=== PATIENT | female | born 1960 | race Caucasian/White ===

== ENCOUNTER 2018-12-24 07:59 | Outpatient (CLI) | payer MEDICARE ==
--- NOTE | 2018-12-24 14:17 | NM ---
RADIONUCLIDE GASTRIC EMPTYING SCAN: Date: 12/24/18 HISTORY: Nausea. Patient had colon removed in 1999 due to polyps. Polyps are now seen in the stomach. Concern for gastroparesis. TECHNIQUE: A gastric emptying scan was performed using 2.1 mCi technetium-99m sulfur colloid orally in scrambled eggs. FINDINGS/IMPRESSION: There is 36% emptying of the ingested gastric contents at 1 hour, 87% emptying at 2 hours, 88% emptyi ng at 3 hours, and 90% emptying at 4 hours. The calculated gastric emptying halftime measures 81 minutes. POS: FREDO
== END 2018-12-24 08:00 | disposition home or self-care (01) ==
LOC: NM 07:59
PROVIDERS: ATTEND Internal Medicine
DX: R11.2 Nausea with vomiting, unspecified (principal)
CPT/HCPCS: 78264; A9541

== ENCOUNTER 2019-04-16 13:44 | Inpatient (IN) | payer MEDICARE ==
[~2019-04-16 13:44] MED LIST: Heparin 1,000 UNITS/ML VIAL ONE; ISOVUE-370 76%-LOCM 1 ML ONE
[2019-04-16] MEDS ORDERED: Lorazepam 2 MG/ML VIAL ONE ×2 (13:48→14:10)
[2019-04-16 14:04] LABS: #Basophils 0.1 thou/uL (0.0-0.2); #Lymphocytes 3.9 thou/uL (1.20-3.40); #Monocytes 0.5 thou/uL (0.11-0.59); #Neutrophils 4.8 thou/uL (1.40-6.50); %Basophils 0.7 % (0.0-1.0); %Lymphocytes 42.5 % (21.0-51.0); %Neutrophils 51.7 % (42.0-75.0); Hemoglobin 14.5 g/dL (12.0-16.0); Mean Corpuscular HGB CONC 33.8 g/dL (32.0-36.0); Mean Corpuscular Hemoglobin 31.6 pg (27.0-31.0); Mean Corpuscular Volume 93.5 fL (78.0-98.0); Mean Platelet Volume 8.3 fL (7.4-10.4); Platelet Count 251 thou/uL (130-400); RBC Distribution Width 12.4 % (11.5-14.5); Red Blood Cell (RBC) Count 4.58 mill/uL (4.20-5.40); White Blood Cell (WBC) Count 9.3 thou/uL (4.8-10.8)
--- NOTE | 2019-04-16 14:25 | CT ---
EXAM: Brain CTWithout contrast: HISTORY: Seizure in the hospital lobby with fall and injury COMPARISON: None FINDINGS: No focal mass or midline shift. No intra or extra-axial hemorrhage. Sinuses and mastoids are clear of acute process. IMPRESSION: No mass or bleed or other significant acute intracranial process.
[2019-04-16 14:28] LABS: Acetaminophen Less than 6.0 mcg/mL (10.0-30.0); Alcohol Less than 10 mg/dL (Less than 10); Salicylate Less than 8.0 mg/dL (15.0-30.0)
[2019-04-16 14:29] LABS: ALT (SGPT) 10 U/L (8-55); AST (SGOT) 17 U/L (5-34); Albumin 4.8 g/dL (3.5-5.0); Alkaline Phosphatase 67 U/L (40-150); Anion Gap 23 mmol/L (10-20); BUN (Urea Nitrogen) 10 mg/dL (9.8-20.1); Bilirubin, Total 0.6 mg/dL (0.2-1.2); Calc. Creatinine Clearance 0 mL/min (70-130); Calcium 10.2 mg/dL (7.8-10.44); Carbon Dioxide 17 mmol/L (22-29); Chloride 102 mmol/L (98-107); Estimated GFR-MDRD 66; Globulin 2.5 g/dL (2.4-3.5); Glucose 108 mg/dL (70-105); Potassium 3.8 mmol/L (3.5-5.1); Protein, Total 7.3 g/dL (6.0-8.3); Sodium 138 mmol/L (136-145)
[2019-04-16] MEDS ORDERED: SODIUM CHLORIDE 0.9% IVPB SCH (14:30)
[2019-04-16] MEDS ORDERED: FOSPHENYTOIN SODIUM IVPB SCH (14:30)
--- NOTE | 2019-04-16 14:30 | CT ---
EXAM: CT cervical spine PROVIDED CLINICAL HISTORY: Code green. Patient fell after a seizure. Injury after a fall. TECHNIQUE: Contiguous axial CT images are obtained through the cervical spine from the skull base to the T2 leve l. Sagittal and coronal reformatted images are provided. COMPARISON: None FINDINGS: No fracture or subluxation is seen involving the cervical spine. Postsurgical changes related to anterior cervical fusion are present at the C5-6 level with anterior plate and screws transfixing this level. Intradiscal graft material is present at this level. Facet degenerative changes are seen in the cervical spine. There is moderate to severe bilateral neur al foraminal narrowing at the C6-7 level due to posterior osteophyte formation and facet degenerative changes. No prevertebral soft tissue swelling apparent. Emphysematous changes are seen in the visualized lung apices bilaterally, and there is also a biapica l pleural and parenchymal scarring present. Visualized thyroid gland demonstrates a grossly normal nonenhanced CT appearance. IMPRESSION: Degenerative and postoperative changes involving the cervical spine, but no fracture or subluxation i s seen.
[2019-04-16 14:51] LABS: Bilirubin Negative (Negative); Blood, Urine Negative (Negative); Clarity Clear (Clear); Glucose, Urine (Dipstick) Normal (Negative); Leukocyte Negative Leu/uL (Negative); Nitrite Negative (Negative); Protein, Urine (Dipstick) Negative (Neg-Trace); Urobilinogen Normal mg/dL (Less than 2)
[2019-04-16 15:06] LABS: Amphetamine Not Detected (NotDetected); Barbiturates Screen Not Detected (NotDetected); Benzodiazepine Screen Not Detected (NotDetected); Cocaine Metabolite Screen Not Detected (NotDetected); Medtox Control Line Valid? VALID (VALID); Medtox Reader # READER 1; Methadone Not Detected (NotDetected); Methamphetamine Not Detected (NotDetected); Opiate Screen Not Detected (NotDetected); Oxycodone Screen Not Detected (NotDetected); Phencyclidine (PCP) Not Detected (NotDetected); THC/Cannabinoid Screen Detected (NotDetected); Tricyclic Screen Not Detected (NotDetected)
--- NOTE | 2019-04-16 15:28 | CT ---
CT ANGIOGRAM NECK WITH CONTRAST CT ANGIOGRAM OF BRAIN WITH AND WITHOUT CONTRAST: DATE: 04/16/2019 HISTORY: 58-year-old female status post seizure and left upper extremity weakness. COMPARISON: None TECHNIQUE: After IV contrast injection, arterial bolus chasing technique scan performed from aortopulmonic windo w to vertex of head. Coronal and sagittal 3-D MIP reconstructions. FINDINGS: Brachiocephalic: No stenosis. Right subclavian: No stenosis. Left subclavian: No stenosis proximally. Distal portion obscured by streak artifact from adjacent con trast bolus in left subclavian vein. Right common carotid: Normal. Left common carotid: Normal. Right cervical internal carotid: Normal. No plaque. Left cervical internal carotid: Normal. No plaque. Bilateral carotid siphons: Normal. No plaque. Right vertebral: Dominant. No stenosis. Left vertebral: Diminutive. No significant stenosis. Basilar: Normal Bilateral posterior cerebral: Normal Bilateral superior cerebellar: Patent. Bilateral anterior cerebral: Normal A1 and A2 segments. Bilateral middle cerebral's: Normal M1 segments bilaterally. No intracranial aneurysm identified. IMPRESSION: Negative.
[2019-04-16] MEDS ORDERED: Ondansetron PF 4 MG/2 ML Vial ONE (16:12)
[2019-04-16 17:52] VITALS: BMI 15.2
[2019-04-16] MEDS: levETIRAcetam 500 MG TAB PO SCH (20:06)
[2019-04-16] MEDS ORDERED: Senokot S 8.6-50 MG TAB PO PRN (20:33)
[2019-04-16] MEDS: Sodium Chloride 0.9% 1,000 ML IV SCH (20:52)
[2019-04-17 05:24] LABS: #Lymphocytes 2.2 thou/uL (1.20-3.40); #Monocytes 0.4 thou/uL (0.11-0.59); #Neutrophils 2.4 thou/uL (1.40-6.50); %Basophils 0.8 % (0.0-1.0); %Eosinophils 0.7 % (0.0-10.0); %Lymphocytes 43.6 % (21.0-51.0); %Monocytes 7.5 % (0.0-10.0); %Neutrophils 47.3 % (42.0-75.0); Mean Corpuscular HGB CONC 33.4 g/dL (32.0-36.0); Mean Corpuscular Hemoglobin 31.7 pg (27.0-31.0); Mean Corpuscular Volume 94.9 fL (78.0-98.0); Platelet Count 162 thou/uL (130-400); RBC Distribution Width 12.4 % (11.5-14.5)
--- NOTE | 2019-04-17 05:49 | HP ---
CHIEF COMPLAINT: Seizure. PRIMARY CARE PHYSICIAN: Kennedi Campos PA-C HISTORY OF PRESENT ILLNESS: Ms. Polo is a 58-year-old female who presented to the emergency room after having a seizure in the lobby of the hospital just prior to arrival. Nurse reports that the patient seized three times after she arrived in the emergency room, 5 minutes apart and less than 1 minute. Seizures described by witnessed. The patient hyperventilates and starts to seize. Brother reported to the ER staff that they were at the hospital to get the preliminary paperwork and contrast for an MRI that she has scheduled for her increased weight loss and inability to eat or drink much without vomiting and back up. The patient reports that she has had an unexplained weight loss, has seen Dr. Suarez of the GI clinic and MRI was trying to help discern why. She has been unable to eat or drink much in the last several weeks. Reports that she does have a seizure disorder, although she has not had one in at least 2 years and reports that she has not taken any medication in at least that long. She reports pain to her left side initially after her seizures. She was given some Ativan and a bolus of fosphenytoin and has remained seizure-free after medications. CT of the brain showed no mass or bleed or any significant intracranial process. The patient also had a cervical spine CT which showed no fracture or subluxation. Postsurgical changes related to anterior cervical fusion are present at C5-C6. Facet degenerative changes seen at the cervical spine. Emphysematous changes seen in the visualized lung apices bilaterally. Biapical pleural and parenchymal scarring present. Visualized thyroid gland demonstrates a grossly normal nonenhanced CT appearance. Degenerative and postoperative changes including the cervical spine with no fracture or subluxation seen. The patient also had a CTA of the head and neck and was negative. Blood work unremarkable. Toxicology with cannabinoids detected, otherwise unremarkable. The patient does have a past medical history which is pertinent for lupus, FAP, unexplained unintentional weight loss, hiatal hernia. The patient subsequently admitted to the stroke unit for further workup. REVIEW OF SYSTEMS: Denies back pain or fall. Denies injury. Does report some left side pain. Denies mental status changes. Does report seizures. Denies headaches or sensory changes. All other systems reviewed and negative unless mentioned in the HPI. PAST MEDICAL HISTORY: Lupus, seizures, FAP, hiatal hernia. PAST SURGICAL HISTORY: Multiple surgeries. Per CT scan of her neck, she has had at least cervical spine surgeries. PSYCHIATRIC HISTORY: None. SOCIAL HISTORY: Denies any alcohol or drug use. Reports that she smokes tobacco. She reports that she has cut down because she generally is not feeling well and has issues with her stomach, which are being evaluated by Dr. West. KNOWN ALLERGIES: She reports that she has allergies to all opiates. PHYSICAL EXAMINATION: VITAL SIGNS: Blood pressure 125/87, pulse is 79, respirations 20, temperature is 98.2, and pulse ox is 100% on 2 L. CONSTITUTIONAL: The patient appears nontoxic, appears pain free. She is alert and oriented to person, place, and time. HEAD: Atraumatic and normocephalic. Eyes, pupils are equally round and reactive to light. Extraocular muscles are intact. ENT: Mucous membranes are moist. She has poor dentition. NECK: Normal range of motion. Trachea is midline. RESPIRATORY: Chest; breath sounds are clear. CARDIOVASCULAR: S1, S2. Heart sounds are normal. Regular rate and rhythm. ABDOMEN: Nontender. Bowel sounds are heard. BACK: Normal range of motion. No tenderness. EXTREMITIES: Upper extremity; normal inspection, normal range of motion, motor strength is normal, sensation is intact, radial pulses equal bilaterally. Lower extremity; normal range of motion, normal inspection, no signs of trauma, pedal pulses equal bilaterally. NEUROLOGIC: Speech is normal. Cranial nerves 2 through 12 are grossly intact. No focal motor or sensory deficits. She is alert and oriented x3. SKIN: Warm and dry. Normal in color. PSYCH: Has a normal affect. IMAGING: EKG in the emergency room shows sinus tach, beats per minute 124, axis is normal. LABORATORY DATA: White blood cell count 9.3, hemoglobin 14.5, hematocrit 42.8, and platelet count is 251. Sodium 138, potassium 3.8, chloride 102, carbon dioxide 17, gap is 23, BUN is 10, creatinine is 0.88, estimated GFR is 66, glucose is 108. Liver enzymes are unremarkable. Urine is negative. Toxicology positive for cannabinoids. ASSESSMENT AND PLAN: 1. We have ordered an MRI without contrast and Neurology consult for recurrence of seizures, which she has not had in the last 2 years with some Kody's paralysis noted. We will start her on some Keppra 500 mg p.o. b.i.d. gentle hydration at 75 mL per hour with normal saline. We have asked OT and PT to consult. 2. Unexplained weight loss, unable to eat or drink within the last several weeks without she says vomiting, even water. We have asked GI for their input and recommendations. The patient states that she was scheduled for some sort of MRI on Friday with contrast. 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 3. Deep venous thrombosis and gastrointestinal prophylaxis started. 4. Case discussed with Dr. Hensley who agrees with the plan. 5. Hospital course is dependent on clinical findings. Job ID: [id number]
[2019-04-17 05:58] LABS: ALT (SGPT) 9 U/L (8-55); AST (SGOT) 15 U/L (5-34); Albumin 3.7 g/dL (3.5-5.0); Alkaline Phosphatase 50 U/L (40-150); Anion Gap 11 mmol/L (10-20); BUN (Urea Nitrogen) 11 mg/dL (9.8-20.1); Bilirubin, Total 0.6 mg/dL (0.2-1.2); Calc. Creatinine Clearance 51 mL/min (70-130); Calcium 8.2 mg/dL (7.8-10.44); Carbon Dioxide 22 mmol/L (22-29); Chloride 107 mmol/L (98-107); Estimated GFR-MDRD 76; Glucose 84 mg/dL (70-105); Potassium 3.9 mmol/L (3.5-5.1); Protein, Total 5.7 g/dL (6.0-8.3); Sodium 136 mmol/L (136-145)
[2019-04-17] MEDS: Famotidine 20 MG TAB PO SCH (08:07)
[2019-04-17] MEDS: levETIRAcetam 500 MG TAB PO SCH ×2 (08:08→20:34)
[2019-04-17] MEDS: Enoxaparin Sodium 30 MG/0.3 ML SYRINGE SC SCH (08:09)
--- NOTE | 2019-04-17 09:54 | MRI ---
MRI BRAIN NONCONTRAST: DATE: 04/17/2019 HISTORY: 58-year-old female with seizure FINDINGS: There is no obstructive hydrocephalus. There is no midline shift or any other evidence of mass effect . There is no extra-axial fluid collection. There are mild chronic ischemic white matter changes due to microvascular atherosclerosis. There is otherwise no major intra-axial signal abnormality, rec ent hemorrhage, or restricted diffusion. IMPRESSION: 1) mild chronic ischemic white matter changes. 2) otherwise negative
[2019-04-17] MEDS: Sodium Chloride 0.9% 1,000 ML IV SCH ×2 (10:04→21:37)
--- NOTE | 2019-04-17 13:29 | PRG ---
DATE OF SERVICE: 04/17/2019 SUBJECTIVE: The patient is seen and examined at the bedside. She complains about abdominal pain and vomiting for a long time and weight loss about 40 pounds in the last 2 months. OBJECTIVE: VITAL SIGNS: Blood pressure is 118/82, pulse is 68, respiratory rate is 20, temperature is 97.8, O2 saturation is 98% on room air. GENERAL: She is very malnourished. She lost subcutaneous tissue and fat. Malnourishment is severe. HEENT: Her head is atraumatic and normocephalic. Sclerae are nonicteric. Pupils are responding to light properly. Oral mucosa is moist. NECK: Supple. LUNGS: Clear. HEART: S1, S2 normal. No S3. No S4. ABDOMEN: Soft and tender in the epigastric area. No guarding. No masses. Bowel sounds present. EXTREMITIES: No clubbing, cyanosis, or edema. NEUROLOGICAL: She is alert and oriented x4. There is no any sensory or motor deficits present. Cranial nerves are intact. LABORATORY DATA: White count of 5.0, hemoglobin 12.0, hematocrit 36.0, platelet count 162,000. Normal chemistry except for serum total protein which is 5.7, and globulin 2.0. IMPRESSION: 1. Seizures. Apparently, she had seizures in the past, but she has not been taking any medications for that for approximately 2 years or more. Recently, she lost lot of weight, approximately 40 pounds. This could be a trigger for seizures to come back. She is started on Keppra 500 mg twice a day. Neurology is consulted and MRA of the brain is pending. 2. Nausea, vomiting, abdominal pain, and weight loss secondary to that during investigation by Dr. Suarez, her primary GI. We will obtain some studies to check what her lupus status is. She has a history of lupus in the past. 3. Severe malnutrition. We will start her on TPN after we obtain the PICC line. We will discuss the case with Dr. Munroe, who is police communications dispatcher for Dr. Suarez today. Job ID: [id number]
--- NOTE | 2019-04-17 13:30 | CON ---
DATE OF TELEMEDICINE CONSULTATION: 04/17/2019 CHIEF COMPLAINT: Possible seizure. HISTORY OF PRESENT ILLNESS: The patient is a 58-year-old lady, who has lupus and familial amyloid polyposis for which she has been seeing physician. She is not on any seizure medication. She has history of complex partial seizures which started about 6 years ago. Her last seizure was 2 years ago at which time she stopped her medication due to not having any seizures and she just moved to the area 6 months ago. She has not had good luck with neurologist, because she stated neurologist want to start her on steroids for her lupus and due to the FAP, she cannot take steroid. 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 PREVIOUS MEDICAL HISTORY: Positive for lupus, familial adenomatous polyposis, arthritis, seizures, and she does not drive. She sees a enterprise infrastructure architect. PAST SURGICAL HISTORY: She had a surgery for lymph node removal near her C- spine. She had a hysterectomy, gallbladder surgery for gallstone removal. She also had lymph node surgery. FAMILY HISTORY: She has 3 brothers, 2 of them had health issues, 1 had an [address], the other one is disabled due to chemical exposure at [employer] and he was taken immediately to the hospital and he has severe neurological symptoms from it. Her mother is 80 years old and has melanoma and arthritis. Her father passed at 50 from CVA. On her father's side, there is history of CVAs. LABORATORY WORKUP: White count 5, hemoglobin 12, hematocrit 36, platelets 162. Chemistry; sodium 136, potassium 3.9, chloride 107, BUN 11, creatinine 0.78. Urinalysis is negative. Urine tox is positive for cannabinoids. Her current MRI of the brain was completed and I gave the report to the patient as well. The patient has mild chronic ischemic white matter changes, otherwise negative. REVIEW OF SYSTEMS: PULMONARY: Negative for cough, shortness of breath. GI: Negative for vomiting, nausea, and diarrhea. NEUROLOGIC: Positive for seizure. ENDOCRINE: Negative. MUSCULOSKELETAL: Positive for arthritis. GENITOURINARY: Negative. DERMATOLOGIC: Negative for any skin rash. PHYSICAL EXAMINATION: VITAL SIGNS: Temperature is 97.4, blood pressure is 138/76, pulse rate is 68. GENERAL APPEARANCE: Thin built well-nourished lady, who seems slightly anxious. CHEST: Clear vesicular breathing. CARDIOVASCULAR: S1 and S2 heard. No murmurs. ABDOMEN: Soft. NEUROLOGICAL: Higher intellectual functions. Normal orientation to time, place , and person. Appropriate conversation. Cranial nerves 2 through 12. Normal extraocular movements. Pupils are equal, 2 mm, reactive to light bilaterally. Normal sensation of face bilaterally. No facial asymmetry noted. Tongue midline. No atrophy noted. Normal elevation of palate. Normal hearing. Motor, bulk normal, tone normal. Strength 4/5 throughout in upper and lower extremities. This was more of a generalized weakness due to deconditioning. Muscle groups tested are deltoid, biceps, triceps, wrist extension and flexion, finger extension and flexion bilaterally and in the iliopsoas, hamstrings, quadriceps, ankle dorsiflexion and plantar flexion. Deep tendon reflexes 3+ throughout in upper and lower extremities. Cerebellar, normal [id number], [id number]. Sensory exam, normal to touch bilaterally. Gait not tested. IMPRESSION: The patient is a 58-year-old lady with lupus and familial adenomatous polyposis. She has known history of complex partial seizures and was observed to have a seizure during this admission. This is most likely due to her not being on oral medications for seizure. She has not taken any seizure medicine for 2 years now. Her examination is generally normal neurologically except for mild generalized weakness due to decreased effort and perhaps deconditioning. At this time, she will need to stay on seizure medications. RECOMMENDATIONS: Agree with Sun. I advised her to see Dr. Bermeo as outpatient and alter established continuity of care with her enterprise infrastructure architect. Job ID: [id number] [facility]
[2019-04-18 05:36] LABS: #Eosinphils 0.1 thou/uL (0.0-0.7); #Lymphocytes 1.7 thou/uL (1.20-3.40); #Monocytes 0.4 thou/uL (0.11-0.59); #Neutrophils 3.3 thou/uL (1.40-6.50); %Basophils 0.6 % (0.0-1.0); %Eosinophils 1.2 % (0.0-10.0); %Lymphocytes 31.7 % (21.0-51.0); %Monocytes 7.3 % (0.0-10.0); %Neutrophils 59.3 % (42.0-75.0); Hemoglobin 12.4 g/dL (12.0-16.0); Mean Corpuscular HGB CONC 33.5 g/dL (32.0-36.0); Mean Corpuscular Hemoglobin 31.8 pg (27.0-31.0); Mean Corpuscular Volume 94.9 fL (78.0-98.0); Platelet Count 163 thou/uL (130-400); RBC Distribution Width 12.2 % (11.5-14.5); Red Blood Cell (RBC) Count 3.92 mill/uL (4.20-5.40); White Blood Cell (WBC) Count 5.5 thou/uL (4.8-10.8)
[2019-04-18 06:04] LABS: ALT (SGPT) 29 U/L (8-55); AST (SGOT) 26 U/L (5-34); Albumin 3.6 g/dL (3.5-5.0); Alkaline Phosphatase 65 U/L (40-150); Anion Gap 10 mmol/L (10-20); BUN (Urea Nitrogen) 8 mg/dL (9.8-20.1); Bilirubin, Total 0.6 mg/dL (0.2-1.2); Calc. Creatinine Clearance 53 mL/min (70-130); Calcium 8.4 mg/dL (7.8-10.44); Carbon Dioxide 23 mmol/L (22-29); Chloride 107 mmol/L (98-107); Estimated GFR-MDRD 79; Globulin 2.1 g/dL (2.4-3.5); Glucose 79 mg/dL (70-105); Potassium 4.3 mmol/L (3.5-5.1); Protein, Total 5.7 g/dL (6.0-8.3); Sodium 136 mmol/L (136-145)
[2019-04-18] MEDS: levETIRAcetam 500 MG TAB PO SCH ×2 (09:44→20:24)
[2019-04-18] MEDS: Famotidine 20 MG TAB PO SCH (09:44)
[2019-04-18] MEDS: Enoxaparin Sodium 30 MG/0.3 ML SYRINGE SC SCH (09:44)
--- NOTE | 2019-04-18 10:47 | PRG ---
DATE OF SERVICE: 04/18/2019 SUBJECTIVE: This is a 58-year-old female, hospitalized after she is experiencing some seizures while came for the [facility] scheduling. The patient done well over the last 48 hours. She has no more seizures. She has no abdominal pain. She complains of nausea and vomiting off and on. Her symptoms are some what better since yesterday. She is taking supplement without any nausea or vomiting. she says she might like to try some food. PHYSICAL EXAMINATION: GENERAL: Appears very comfortable. She is very thin built. VITAL SIGNS: Afebrile. Pulse is 65, blood pressure 128/85. CARDIOVASCULAR SYSTEM: First and second heart sounds heard. LUNGS: Clear to auscultation. ABDOMEN: Soft. Abdomen is nontender. No organomegaly or masses. RECOMMENDATIONS: 1. Continue supplemental feeding as she seems to be tolerating supplement without any nausea or vomiting. 2. May try diet today and see whether she can tolerate diet. 3. Dr. Avtar Suarez will assume care from tomorrow. Her lab data reviewed from this morning and all the labs are actually normal. Job ID: [id number] MTDD
--- NOTE | 2019-04-18 13:28 | PRG ---
DATE OF SERVICE: 04/18/2019 SUBJECTIVE: The patient is seen and examined at the bedside. There is not much change since yesterday. She tried some food yesterday, small amount, and she was able to keep it down without much nausea or vomiting. OBJECTIVE: VITAL SIGNS: Blood pressure is 135/79, temperature is 97.6, pulse is 57, respiratory rate is 20, and O2 saturation is 98% on room air. GENERAL: She is severely malnourished. She looks cold and sick. HEENT: Head is atraumatic and normocephalic. Eyes are PERRLA. Sclerae are nonicteric. Mucosa is moist. NECK: Supple. LUNGS: Clear. HEART: S1, S2 normal. ABDOMEN: Soft, mildly tender in the epigastric area. No guarding. No masses. EXTREMITIES: No clubbing, cyanosis, or edema. NEUROLOGIC: She is alert and oriented x4. There is no any motor or sensory deficits present. Cranial nerves are intact. LABORATORY DATA: White count of 5.5, hemoglobin 12.4, hematocrit 37.2, platelet count is 163,000. Normal electrolytes. BUN of 8 and creatinine of 0.76, total protein 5.7, globulin 2.1, complement C3 is 97, complement C4 is 18. Microbiology, nothing. MRI of the brain showed mild chronic ischemic white matter changes. Otherwise, it is negative. IMPRESSION: 1. Seizures controlled with Keppra. The patient was seen by neurologist, Dr. Ross. We are awaiting for the final report. 2. Nausea, vomiting, abdominal pain, and weight loss worked up by Dr. Suarez on outpatient basis. We do not have access to this and the patient is not really helping us to know what we found. 3. Severe malnutrition. Apparently, she tolerated supplements yesterday and she tried some diet today. If she is still throwing up, we will do the PICC line tomorrow and TPN will be started. Dr. Suarez is going to take over GI followup and we are going to continue current regimen. Job ID: [id number]
[2019-04-18] MEDS: Sodium Chloride 0.9% 1,000 ML IV SCH (18:42)
--- NOTE | 2019-04-19 10:06 | CON ---
DATE OF CONSULTATION: 04/17/2019 REASON FOR CONSULTATION: Nausea, vomiting, not able to keep anything down and progressive weight loss. HISTORY OF PRESENT ILLNESS: Ms. Ashly Polo is a very pleasant 58-year-old fragile looking female, who had been seeing Dr. Avtar Suarez recently. The patient has history of nausea and vomiting, not able to keep anything down and also some vague abdominal pain. She was seen by Dr. Avtar Suarez recently and have EGD done. As per the patient, EGD was negative. She was supposed to have an MRI of the abdomen this week and she came to get the contrast. While in the hospital , she had an episode of fevers. She has multiple fevers and also was taken to the ER. Apparently, she had three episodes of seizures. The patient really does not recall exactly what happened. The patient is noted to have chronic seizure disorder for many years. The patient had no seizures for last two years. The patient says whatever she eats or drinks, everything keeps coming out. Even she drinks water , she is unable to keep it down. The patient has no abdominal pain at present. The patient is status post total colectomy with ileal J-pouch many years ago. She has just done at [facility]. The patient has history of FAP in the past. She has undergone multiple surgeries including cholecystectomy, appendectomy, hysterectomy, oophorectomy, etc. The patient has history of lupus diagnosed many years ago. I am really not sure whether she has lupus, because her symptoms are very non specific and really not sure whether she has lupus. 1. FAP. 2. Hiatal hernia. 3. Chronic acid reflux. 4. Lupus, not on any medication. PAST SURGICAL HISTORY: 1. Cholecystectomy. 2. Appendectomy. 3. Hysterectomy. 4. Bilateral oophorectomy. 5. Total colectomy with ileal J-pouch. She has no history of heart disease, lung disease, diabetes, or hypertension. SOCIAL HISTORY: The patient smokes a pack of cigarettes per day. She does not drink alcohol. No history of any drug use. PSYCHIATRIC HISTORY: She denies history of depression and anxiety. ALLERGIES: ALLERGY TO OPIATES. FAMILY HISTORY: Unremarkable. MEDICATIONS: Reviewed. REVIEW OF SYSTEMS: A 10-point system review; COATING MIXER: No chronic headache. No syncope. No history of seizure disorder. EYES: No history of any impaired vision or diplopia. EARS: No ear pain. No discharge. NOSE: No nose bleed. THROAT: No sore throat or dysphagia. NECK: No stiffness on limited movements. BREASTS: No breast masses or discharge from the nipple. LUNGS: No chronic coughing. No hemoptysis. No dyspnea. CARDIOVASCULAR: No chest pain. No palpitation. No dyspnea, orthopnea, or PND. GI: Nausea, vomiting, vague abdominal pain. : Not relevant. MUSCULOSKELETAL: She has history of some pain in the left elbow and also left wrist, some back pain. NEUROLOGIC: Unremarkable PSYCHIATRY: Unremarkable. PHYSICAL EXAMINATION: GENERAL: She is a very thin built, very fragile looking. She is skin and bone. She appears very comfortable, in no acute distress. VITAL SIGNS: Afebrile, pulse is 68, blood pressure 118/82. HEENT: Conjunctivae clear. NECK: Supple. No adenitis or thyromegaly noted. CARDIOVASCULAR: First and second heart sounds appear normal. LUNGS: Clear to auscultation. ABDOMEN: Soft to palpate. She has a midline scar. Abdomen is nondistended. Abdomen is nontender. No organomegaly or masses. EXTREMITIES: Reveal no edema. LABORATORY DATA: CBC; WBC 9300, hemoglobin 14.5 dropping to 12, hematocrit 36, MCV 94.9, platelet count is 162,000, polymorphs 47, lymphocytes 43. Chem panel; sodium 136, potassium 3.9, chloride 107, bicarb 22, BUN is 11, creatinine 0.78, glucose is 84, calcium 8.2, bilirubin 0.6, AST 15, ALT 9, alkaline phosphatase 50, albumin 3.7. She had a brain CT scan and MRI, they were reported normal. CLINICAL IMPRESSION: 1. A 58-year-old female with history of seizure disorder and having episode of fever yesterday. CAT scan of the head and MRI are negative. She gives a history of progressive weight loss of 40 pounds, and she says she is unable to keep anything down between nausea and vomiting. She has seen Dr. Suarez in the recent past and EGD was negative. Abdomen is very benign. 2. History of lupus erythematosus, but at the present time she has no symptoms that suggest she has lupus active. 3. Seizure disorder. 4. Multiple surgeries including appendectomy, cholecystectomy, hysterectomy, bilateral oophorectomy, etc. I had a long discussion with Ms. Polo and explained to her that if she is not able to keep anything down. She may have to consider having TPN. She was informed of the above and she is willing to have the TPN , if necessary.. Job ID: [id number]
--- NOTE | 2019-04-19 10:57 | SPC ---
Exam: ULTRASOUND GUIDED LEFT UPPER EXTREMITY PICC LINE PLACEMENT: HISTORY: Patient requires TPN. EXPOSURE: 0.6 minutes, 87 mGy/cm2. FINDINGS: Successful left upper extremity PICC line placement with ultrasound guidance. Distal tip is in the davis perior vena cava. Trim length 47 cm. Both lumens flush and aspirate without difficulty TECHNIQUE: Consent obtained to perform a left upper extremity PICC line placement with ultrasound guidance. Left arm was prepped and draped in the usual sterile fashion. The basilic vein was identified. 1% lidocaine, buffered with sodium bicarbonate was used for local anesthesia. Under ultrasound guidance, a micropuncture needle was used to cannulate the basilic vein. A 0.018 guidewire was advanced through the needle to the level of the superior vena cava. Under fluoroscopy, the wire was advanced i nto the inferior vena cava to document venous access. Wire was subsequently pulled back to the superior vena cava. Tract was dilated. A dual lumen 5 German catheter was advanced over the wire. Wir e was removed. Both lumens flush and aspirate without difficulty. Trim length is 47 cm. IMPRESSION: Successful left upper extremity PICC line placement with ultrasound guidance. Transcribed Date/Time: 04/19/2019 12:05 PM
[2019-04-19] MEDS: Famotidine 20 MG TAB PO SCH (11:16)
[2019-04-19] MEDS: levETIRAcetam 500 MG TAB PO SCH ×2 (11:16→22:46)
[2019-04-19] MEDS: Enoxaparin Sodium 30 MG/0.3 ML SYRINGE SC SCH (11:16)
[2019-04-19] MEDS ORDERED: ISOVUE-370 76%-LOCM 1 ML ONE (12:10)
[2019-04-19] MEDS: Sodium Chloride 0.9% 1,000 ML IV SCH (13:01)
--- NOTE | 2019-04-19 16:13 | PRG ---
DATE OF SERVICE: 04/19/2019 SUBJECTIVE: The patient is seen and examined at bedside. She is able to tolerate some broth without nausea or vomiting. OBJECTIVE: VITAL SIGNS: Blood pressure is 126/73, pulse is 56, respirations 16, temperature 97.9, O2 saturation is 97%. She is severely malnourished. HEENT: Her eyes are PERRLA. Sclerae are nonicteric. Oral mucosa is moist. NECK: Supple. LUNGS: Clear. HEART: S1 and S2 normal. ABDOMEN: Soft. Somewhat tender on palpation in both lower and mid parts. No guarding. No masses. EXTREMITIES: No clubbing, cyanosis, or edema. She lost a lot of subcutaneous tissue and fat. NEUROLOGIC: She is alert and oriented x4. There are no any motor or sensory deficits. LABORATORY DATA: None today. IMPRESSION: 1. Recurrent seizures, on Keppra, controlled. 2. Nausea, vomiting, abdominal pain, and weight loss under Dr. Suarez's diagnostic workup. The patient is supposed to have MRI tomorrow. Dr. Suarez is going to see her tonight and we will set her up for MRI tomorrow. 3. Severe malnutrition secondary to #2. The patient got the PICC line and we started her on TPN today, which was customized by dietitian. Job ID: [id number]
[2019-04-19] MEDS ORDERED: WATER IV SCH (18:00)
[2019-04-19] MEDS ORDERED: MULTITRACE IV SCH (18:00)
[2019-04-19] MEDS ORDERED: DEXTROSE IV SCH (18:00)
[2019-04-19] MEDS ORDERED: [UNRECOGNIZED DRUG - OTHER] IV SCH (18:00)
[2019-04-19] MEDS ORDERED: MULTIVITAMINS IV SCH (18:00)
--- NOTE | 2019-04-19 19:40 | PRG ---
DATE OF SERVICE: 04/19/2019 REASON FOR CONSULTATION: Nausea, vomiting, and weight loss. SUBJECTIVE: The patient states that she her nausea and vomiting have improved significantly with the regular administration of oral antiemetics. She has not had any additional episodes of vomiting today. She did have a PICC line placed today as well in anticipation for placing the patient on TPN. She also is scheduled for CT of the abdomen and pelvis later on today for further evaluation of any intraabdominal abnormality that might be contributing to her nausea and vomiting. Otherwise she states that she continues to have significant fatigue, but otherwise denies any vomiting, fevers, chills, abdominal pain, dysphagia, odynophagia, diarrhea, or constipation. OBJECTIVE: VITAL SIGNS: Temperature 97.9, pulse 56, blood pressure 126/73, respiratory rate 16, and saturating 97% on room air. GENERAL: The patient was lying in bed, in no acute distress. Alert and oriented x4. Cachectic in appearance. CARDIOVASCULAR: Regular rate and rhythm. RESPIRATORY: Clear to auscultation bilaterally. ABDOMEN: Normoactive bowel sounds. Soft, nondistended, mild tenderness to palpation in the left lower quadrant. EXTREMITIES: No cyanosis, clubbing, or edema. LABORATORY DATA: No current studies are available for review. IMAGING DATA: CT of the abdomen and pelvis is pending at this time. ASSESSMENT AND PLAN: The patient is a 58-year-old female with past medical history of lupus, seizure disorder, hiatal hernia, and familial adenomatous polyposis type syndrome, status post subtotal colectomy and J-pouch formation, presenting with chronic nausea, vomiting, and severe protein-calorie malnutrition. Nausea and vomiting. The patient is presenting with a chronic history of nausea and vomiting that has been present for several months at this point and has been evaluated as an outpatient by myself. Current workup thus far has included negative EGD with biopsies negative for eosinophilic esophagitis as well as negative gastric emptying study for further evaluation of her nausea and vomiting. With the intermittent nature of her nausea and vomiting as an outpatient, it has resulted in severe malnutrition due to the inability to keep anything down, and as such, placement on TPN at this time is a prudent course of action in terms of improving her nutrition during this hospitalization. However, at this time, she continues to smoke marijuana, which could also contribute to cannabinoid hyperemesis syndrome, which she has been counseled upon in the past and could generate exactly the clinical picture that we are seeing now. She is currently slated for CT of the abdomen and pelvis for further evaluation of any extraluminal abnormalities and I am curious to see the results of this study as they were going to be done as an outpatient prior to admission. RECOMMENDATIONS: 1. We will follow up on the CT of the abdomen and pelvis with further management guided by the results. 2. Agree with the placement of the PICC line in anticipation of placing the patient on TPN for severe protein-calorie malnutrition. 3. I reiterated strongly to the patient about all marijuana cessation as it can generate the nausea and vomiting and inability to tolerate p.o., creating this clinical picture to the patient. 4. Further endoscopies are not indicated at this time given recent EGD and colonoscopy in December 2018 that were fairly negative for overt pathology. We will continue to follow. Please call with any questions. Job ID: [id number]
[2019-04-19] MEDS: Ondansetron PF 4 MG/2 ML Vial IVP PRN (20:43)
--- NOTE | 2019-04-19 21:33 | CT ---
CT ABDOMEN AND PELVIS WITH CONTRAST: HISTORY: Nausea and vomiting for a year. Weight loss. COMPARISON: None. TECHNIQUE: Multiple contiguous axial images were obtained in a CT of the abdomen and pelvis with contrast. Cont rast was administered p.o. Coronal reformats were performed. FINDINGS: The gallbladder has been removed. There are small, subcentimeter hypodensities scattered throughout the liver, which are too small to definitely characterize. No biliary dilatation is seen. The kidne ys, adrenal glands, spleen, and pancreas are unremarkable. No free air, free fluid, or stranding changes are seen in the abdomen or pelvis. The patient is stat us post hysterectomy. The large and small bowel are unremarkable. The appendix is not definitely se en. The osseous structures, the visualized inferior thorax, and the abdominal wall soft tissues are unrem arkable. IMPRESSION: 1. No evidence of acute intraabdominal/pelvic abnormality. 2. Subcentimeter hypodensities in the liver are too small to definitely characterize. These could r epresent small cysts or hemangiomas. POS: C
[2019-04-19] MEDS: Sodium Acetate 2 mEq/ml 40 MEQ, Sodium Chloride 30 MEQ, Potassium Chloride 20 MEQ, Pota... IV SCH (22:49)
[2019-04-20] MEDS: Enoxaparin Sodium 30 MG/0.3 ML SYRINGE SC SCH (08:55)
[2019-04-20] MEDS: Famotidine 20 MG TAB PO SCH (08:56)
[2019-04-20] MEDS: levETIRAcetam 500 MG TAB PO SCH ×2 (08:56→22:06)
[2019-04-20] MEDS: Acetaminophen 325 MG TAB PO PRN (09:18)
[2019-04-20] MEDS: Sodium Chloride 0.9% 1,000 ML IV SCH ×2 (09:19→22:35)
[2019-04-20 11:36] LABS: ANA Symphony (Qualitative) Negative (Negative); ANA Symphony (Quantitative) 0.1 Ratio (< 0.7 Negative); dsDNA IgG Antibody Less than 0.5 IU/mL (<10 Negative)
--- NOTE | 2019-04-20 15:21 | PRG ---
DATE OF SERVICE: 04/20/2019 SUBJECTIVE: The patient is seen and examined at bedside. She has had PICC line done yesterday and she started on TPN. She is able to tolerate some crackers orally. OBJECTIVE: VITAL SIGNS: Blood pressure is 139/93, pulse is 68, temperature is 97.8, respirations 20, and O2 saturation is 97% on room air. GENERAL: She is severely malnourished. HEENT: Head is atraumatic, normocephalic. Sclerae are nonicteric. Oral mucosa is moist. NECK: Supple. LUNGS: Clear. HEART: S1, S2 normal. ABDOMEN: Soft. Somewhat tender in the left lower quadrant. No guarding. No masses. EXTREMITIES: No clubbing, cyanosis, or edema. She follows my commands. She moves her all 4 extremities. LABORATORY DATA: Lab work today, none. IMPRESSION: 1. Severely malnourished patient, status post PICC line placement and TPN start. 2. Recurrent seizures, on Keppra, controlled. 3. Nausea, vomiting, abdominal pain, weight loss with negative CT of the abdomen, felt to be related to her cannabinoids use chronically. PLAN: Plan is to continue current regimen. Job ID: [id number]
--- NOTE | 2019-04-20 20:04 | PRG ---
DATE OF SERVICE: 04/20/2019 REASON FOR CONSULTATION: Nausea, vomiting, and weight loss/malnutrition. SUBJECTIVE: The patient had a PICC line placed yesterday, was ultimately placed on TPN and has been on TPN for the greater portion of this morning. So far, she has been able to tolerate it well with no observed adverse reactions. She has also been able to tolerate a few crackers but did experience some mild abdominal discomfort with ingestion and did not eat much more than that. Otherwise, she denies any vomiting, fevers, chills, abdominal pain, dysphagia, odynophagia, diarrhea, or constipation. She has not had a bowel movement since admission. OBJECTIVE: VITAL SIGNS: Temperature 98.4, pulse 71, blood pressure 123/84, respiratory rate 20, saturating 96% on room air. GENERAL: The patient is lying in bed, in no acute distress. Alert and oriented x4. Cachectic in appearance. CARDIOVASCULAR: Regular rate and rhythm. RESPIRATORY: Clear to auscultation bilaterally. ABDOMEN: Normoactive bowel sounds. Soft. Nondistended. Mild tenderness to palpation in the left lower quadrant. EXTREMITIES: No cyanosis, clubbing, or edema. LABORATORY DATA: No current studies are available for review. IMAGING DATA: CT of the abdomen and pelvis was obtained on April 19, 2019, which showed no evidence of acute intra-abdominal/pelvic abnormalities with evidence of cholecystectomy. There were some small subcentimeter hypodensity scattered throughout the liver, but are too small to definitely characterize on the study. There was no evidence of biliary dilatation. ASSESSMENT AND PLAN: The patient is a 58-year-old female with past medical history of lupus, seizure disorder, hiatal hernia, and familial adenomatous polyposis syndrome, status post subtotal colectomy in J-pouch formation, presenting with chronic nausea, vomiting, and severe protein calorie malnutrition. Nausea and vomiting. 1. The patient is presenting with a chronic history of nausea and vomiting that has been present for several months and has been evaluated with negative studies thus far including EGD, gastric emptying study, CT scan, and routine labs. As a result of her chronic nausea and vomiting and has resulted in severe malnutrition due to her inability to keep ingested food stuffs down and as such has been placed on TPN for bolstering her nutritional status. Currently, doing well on TPN and I am hopeful that she will respond well to this treatment. At this time, the etiology for her chronic nausea and vomiting seems to be more related to possible cannabinoid hyperemesis syndrome given the relatively negative and/or normal findings on the studies obtained thus far. RECOMMENDATIONS: 1. We would continue TPN for severe protein calorie malnutrition. 2. Strongly encouraged marijuana cessation due to the strong possibility of cannabinoid hyperemesis syndrome. 3. Continue aggressive antiemetic support. 4. Advance diet as tolerated. 5. No endoscopies are indicated at this time given EGD and colonoscopy in December 2018 which were negative for overt pathology. We will continue to follow. Please call with any questions. Job ID: [id number]
[2019-04-20] MEDS: Sodium Acetate 2 mEq/ml 40 MEQ, Sodium Chloride 30 MEQ, Potassium Chloride 20 MEQ, Pota... IV SCH (22:05)
[2019-04-21 09:36] LABS: Phosphorus 4.8 mg/dL (2.3-4.7)
[2019-04-21] MEDS: levETIRAcetam 500 MG TAB PO SCH ×2 (09:44→20:57)
[2019-04-21] MEDS: Enoxaparin Sodium 30 MG/0.3 ML SYRINGE SC SCH (09:44)
[2019-04-21] MEDS: Famotidine 20 MG TAB PO SCH (09:44)
[2019-04-21] MEDS: Sodium Chloride 0.9% 1,000 ML IV SCH ×2 (09:45→20:57)
[2019-04-21 09:52] LABS: ALT (SGPT) 18 U/L (8-55); AST (SGOT) 17 U/L (5-34); Albumin 4.5 g/dL (3.5-5.0); Alkaline Phosphatase 76 U/L (40-150); Anion Gap 16 mmol/L (10-20); BUN (Urea Nitrogen) 15 mg/dL (9.8-20.1); Bilirubin, Total 0.2 mg/dL (0.2-1.2); Calc. Creatinine Clearance 55 mL/min (70-130); Calcium 9.6 mg/dL (7.8-10.44); Carbon Dioxide 26 mmol/L (22-29); Chloride 101 mmol/L (98-107); Estimated GFR-MDRD 84; Globulin 2.6 g/dL (2.4-3.5); Glucose 97 mg/dL (70-105); Magnesium 2.6 mg/dL (1.6-2.6); Potassium 4.9 mmol/L (3.5-5.1); Protein, Total 7.1 g/dL (6.0-8.3); Sodium 138 mmol/L (136-145)
--- NOTE | 2019-04-21 11:22 | PRG ---
DATE OF SERVICE: 04/21/2019 SUBJECTIVE: The patient is seen and examined at the bedside. She is tolerating her TPN without any significant problems. She still has some abdominal discomfort, but she tried some crackers yesterday and she was able to keep them down. OBJECTIVE: VITAL SIGNS: Blood pressure is 131/104 , respiratory rate is 16, O2 saturations is 96% on room air, temperature is 98.7 . GENERAL: She is malnourished, severely. HEENT: Sclerae are nonicteric. Conjunctivae are palish. Oral mucosa is moist. NECK: Supple. LUNGS: Clear. HEART: S1 and S2 normal. ABDOMEN: Soft. Somewhat tender in the epigastric area. No guarding. No masses. EXTREMITIES: No clubbing, cyanosis, or edema. NEUROLOGIC: She follows my commands. She moves all 4 extremities. LABORATORY DATA: Labs showed normal chemistry with phosphorus at 4.8, and the rest is within normal limits. This is most likely related to her TPN. IMPRESSION: Most likely, cannabinoid hyperemesis syndrome as suggested by Dr. Suarez since she used to smoke daily marijuana. She will continue her TPN. We will continue antiemetics, and gradually, she will try to eat some solid food after she passes her trial with full liquid diet. She will continue PT daily and she had full workup done on outpatient basis and there is no plan to do any other testing anymore. Job ID: [id number]
--- NOTE | 2019-04-21 12:22 | PRG ---
DATE OF SERVICE: 04/21/2019 REASON FOR CONSULTATION: Nausea, vomiting, and weight loss/malnutrition. SUBJECTIVE: The patient was able to eat some crackers yesterday with some mildly increased abdominal discomfort, but otherwise did not have any associated nausea or vomiting. Given increased courage, she attempted to eat scrambled eggs this morning and had progression back to nausea with vomiting of her ingested food stuffs. Currently endorsing some mild nausea, but no additional episodes of emesis since the ingestion of eggs this morning. She continues to have mild abdominal discomfort as well that is unchanged in location or severity. Otherwise, she denies any fevers, chills, dysphagia, odynophagia, diarrhea, or constipation. OBJECTIVE: VITAL SIGNS: Temperature 98.5, pulse 81, blood pressure 138/82, respiratory rate 20, and saturating 96% on room air. GENERAL: The patient was lying in bed, in no acute distress. Alert and oriented x4. CARDIOVASCULAR: Regular rate and rhythm. RESPIRATORY: Clear to auscultation bilaterally. ABDOMEN: Normoactive bowel sounds. Soft, nondistended, mild tenderness to palpation in the left lower quadrant. EXTREMITIES: No cyanosis, clubbing, or edema. LABORATORY DATA: No current studies are available for review. IMAGING DATA: No current GI imaging is available for review. ASSESSMENT AND PLAN: The patient is a 58-year-old female with past medical history of lupus, seizure disorder, hiatal hernia, and familial adenomatous polyposis syndrome, status post subtotal colectomy with J-pouch formation, presenting with chronic nausea, vomiting, and severe protein calorie malnutrition. Nausea and vomiting: The patient is presenting with chronic history of nausea and vomiting with negative studies thus far including EGD, gastric emptying study, CT scan of the abdomen and pelvis as well as a CT of the head, colonoscopy, and routine labs. As a result of her increased nausea and vomiting, it has resulted in severe malnutrition due to the inability to keep ingested food stuffs down and as such during this hospitalization has been placed on TPN to bolster her nutritional status. Currently, she is doing well on TPN with attempts to advance her oral diet unsuccessful thus far, but I am hopeful that she will able to tolerate this soon. At this time, the etiology for her chronic nausea and vomiting seems to be more related to possible cannabinoid hyperemesis syndrome given the relatively negative and/or normal findings on the studies obtained thus far. RECOMMENDATIONS: 1. Would continue TPN for severe protein calorie malnutrition and careful monitoring of chemistry during this time. 2. Continue aggressive antiemetic support. 3. Advance diet as tolerated. We will continue to follow. Please call with any questions. Job ID: [id number]
[2019-04-21] MEDS: Acetaminophen 325 MG TAB PO PRN (20:57)
[2019-04-21] MEDS: Sodium Acetate 2 mEq/ml 40 MEQ, Sodium Chloride 30 MEQ, Potassium Chloride 20 MEQ, Pota... IV SCH (22:34)
[2019-04-22] MEDS: Famotidine 20 MG TAB PO SCH (09:56)
[2019-04-22] MEDS: levETIRAcetam 500 MG TAB PO SCH ×2 (09:56→20:39)
[2019-04-22] MEDS: Enoxaparin Sodium 30 MG/0.3 ML SYRINGE SC SCH (09:56)
[2019-04-22 11:13] LABS: Phosphorus 4.5 mg/dL (2.3-4.7)
--- NOTE | 2019-04-22 14:10 | PRG ---
DATE OF SERVICE: 04/22/2019 SUBJECTIVE: The patient is seen and examined at the bedside. She tried some scrambled eggs yesterday and got nauseated, could not eat, but she tolerates her liquids orally pretty well. OBJECTIVE: VITAL SIGNS: Blood pressure is 135/84, pulse is 79, temperature is 98, respirations 16, and O2 saturation is 96% on room air. HEENT: Head is atraumatic and normocephalic. Eyes are PERRLA. Sclerae are nonicteric. Oral mucosa is moist. NECK: Supple. LUNGS: Clear. HEART: S1 and S2 normal. ABDOMEN: Soft. Mildly tender in the epigastric area. No guarding. No masses. EXTREMITIES: No clubbing, cyanosis, or edema. LABORATORY DATA: Glycemia is ranging from 93 to 136, phosphorus 4.5, and magnesium 2.1. IMPRESSION AND PLAN: Most likely cannabinoid hyperemesis syndrome. The patient is going to try some food orally. She is tolerating liquids. At this point, we will continue TPN. We will continue PT and as soon as she is an able to tolerate some food orally, she will be discharged home. Job ID: [id number]
[2019-04-22] MEDS: Ondansetron PF 4 MG/2 ML Vial IVP PRN (14:23)
--- NOTE | 2019-04-22 22:35 | PRG ---
DATE OF SERVICE: 04/22/2019 REASON FOR CONSULTATION: Nausea, vomiting, and weight loss/malnutrition. SUBJECTIVE: The patient states that she was able to consume some soup as well as applesauce earlier today with no increased nausea or vomiting associated with this. She did have some nausea later on this afternoon, but was given IV antiemetics and responded well to administration. She also worked with Physical Therapy today and was able to ambulate in the hallway with some assistance. She has not had a bowel movement over the last 24 to 48 hours. Otherwise, she denies any fevers, chills, vomiting, dysphagia, odynophagia, diarrhea, or constipation. OBJECTIVE: VITAL SIGNS: Temperature 98.3, pulse 74, blood pressure 94/76, respiratory rate 20, saturating 97% on room air. GENERAL: The patient was lying in bed, in no acute distress. Alert and oriented x4. CARDIOVASCULAR: Regular rate and rhythm. RESPIRATORY: Clear to auscultation bilaterally. ABDOMEN: Normoactive bowel sounds. Soft, nondistended. Mild tenderness to palpation in the left lower quadrant. EXTREMITIES: No cyanosis, clubbing, or edema. LABORATORY DATA: Chemistry from earlier today showing a phosphorus of 4.5 and magnesium of 2.1. IMAGING DATA: No current GI imaging is available for review. ASSESSMENT AND PLAN: The patient is a 58-year-old female with past medical history of lupus, seizure disorder, hiatal hernia, and familial adenomatous polyposis syndrome, status post total colectomy with J-pouch formation, presenting with chronic nausea, vomiting, and severe protein-calorie malnutrition. Nausea and vomiting: The patient presents with a chronic history of nausea and vomiting with negative outpatient workup including esophagogastroduodenoscopy, gastric emptying study, CT scan of the abdomen and pelvis, CT scan of the head, colonoscopy, and routine labs. However, as the result of this chronic nausea and vomiting, she has been unable to maintain adequate nutrition, which has now resulted in severe malnutrition and inability to tolerate anything by mouth. With her increasing weakness and intolerance to oral intake, prompted her to seek healthcare assistance and was admitted to the hospital with placement on TPN to bolster her nutritional status. Currently, she is doing well on TPN with attempts to advance her diet successful today given increased time and minimal amounts of ingestion. At this time, the etiology for chronic nausea and vomiting seems to be more related to possible cannabinoid hyperemesis syndrome given the relatively negative and/or normal findings on the studies obtained thus far. With this particular syndrome, the washout period, symptoms be substantial and can sometimes even exhibit symptoms up to 6 months after cessation of marijuana. RECOMMENDATIONS: 1. We would continue TPN for severe protein-calorie malnutrition and careful monitoring of the serum chemistries during this time. We will obtain CMP daily for monitoring of those things as well as magnesium and phosphorus. 2. Continue aggressive antiemetic support. 3. Advance diet as tolerated. Once the patient is able to tolerate a bit more of a liquid diet, then we will consider possible discontinuation of the TPN or even discharged to home with home healthcare for TPN in a short-term basis. We will continue to follow. Please call with any questions. Job ID: [id number]
[2019-04-22] MEDS: Sodium Acetate 2 mEq/ml 40 MEQ, Sodium Chloride 30 MEQ, Potassium Chloride 20 MEQ, Pota... IV SCH (23:14)
[2019-04-23] MEDS: levETIRAcetam 500 MG TAB PO SCH ×2 (09:01→20:11)
[2019-04-23] MEDS: Famotidine 20 MG TAB PO SCH (09:01)
[2019-04-23] MEDS: Enoxaparin Sodium 30 MG/0.3 ML SYRINGE SC SCH (09:01)
[2019-04-23] MEDS: Ondansetron PF 4 MG/2 ML Vial IVP PRN (13:26)
--- NOTE | 2019-04-23 14:07 | PRG ---
DATE OF SERVICE: 04/23/2019 SUBJECTIVE: The patient is seen and examined at the bedside. She is tolerating some shakes orally. There is no problem with her TPN. OBJECTIVE: VITAL SIGNS: Blood pressure is 153/77, pulse is 71, temperature is 97.8, respirations are 16, and O2 saturation is 98% on room air. HEENT: She is atraumatic and normocephalic. Her skin of the face looks better after those few days on TPN. Her face has some colors. I am pleased with this progress. Sclerae are nonicteric. Oral mucosa is moist. NECK: Supple. LUNGS: Clear. HEART: S1 and S2 distant. No S3, no S4. ABDOMEN: Soft. Mildly tender in the epigastric area. No guarding. No masses. EXTREMITIES: No clubbing, cyanosis, or edema. NEUROLOGICAL: She is alert and oriented x4. LABORATORY DATA: Glycemia is ranging from 92 to 111. IMPRESSION AND PLAN: Chronic nausea and vomiting, resulting in 40 pounds loss in the last 2 months, felt to be related to her chronic cannabinoid use. The patient is tolerating her TPN without any problems. Also, she is able to keep her liquids down. She is trying on soft and solids. We will try to find out whether her TPN at home is an option. We will get a case management consult, and the HALINA came back negative and complement C3 and C4 came back within normal limits. For now, we will continue current regimen, and we will see whether we can send her home on TPN. Job ID: [id number]
--- NOTE | 2019-04-23 18:31 | PRG ---
DATE OF SERVICE: 04/23/2019 REASON FOR CONSULTATION: Nausea, vomiting, and weight loss/malnutrition. SUBJECTIVE: The patient states that early this morning she was feeling very good, was able to ambulate with only moderate assistance via physical therapy this morning. She was also able to consume more liquids without any additional episodes of nausea, vomiting. However, this afternoon, she attempted to eat tuna fish and crackers with sudden return of nausea and vomiting with nonbloody emesis. This was alleviated somewhat with IV administration of Zofran. She also denies having a bowel movement over the last 48 to 72 hours. Otherwise, she denies any fevers, chills, dysphagia, odynophagia, diarrhea, or constipation. OBJECTIVE: VITAL SIGNS: Temperature 98.4, pulse 74, blood pressure 101/64, respiratory rate 16, saturating 98% on room air. GENERAL: The patient is lying in bed, in no acute distress. Alert and oriented x4. CARDIOVASCULAR: Regular rate and rhythm. RESPIRATORY: Clear to auscultation bilaterally. ABDOMEN: Normoactive bowel sounds. Soft, nondistended, mild tenderness to palpation in the left lower quadrant. EXTREMITIES: No cyanosis, clubbing, or edema. Cachectic in appearance. LABORATORY DATA: No current studies are available for review. IMAGING DATA: No current GI imaging is available for review. ASSESSMENT AND PLAN: The patient is a 58-year-old female with past medical history of lupus, seizure disorder, hiatal hernia, and familial adenomatous polyposis syndrome, status post total colectomy with J-pouch formation, presenting with chronic nausea, vomiting, and severe protein-calorie malnutrition. 1. Nausea and vomiting/malnutrition: The patient presents with a chronic history of nausea, vomiting with outpatient workup negative including EGD, gastric emptying study, CT scan of the abdomen and pelvis, CT scan of the head, colonoscopy, and routine labs. However, with continued episodes of nausea and vomiting, she has been unable to maintain adequate nutrition resulting in [id number] malnutrition. She continues to have increased nausea, vomiting while here in the hospital with the ingestion of primarily solid food stuffs, but has been able to tolerate liquids well without further exacerbating her nausea and vomiting. She is currently doing well on TPN with further attempts to advance her diet unsuccessful thus far. At this time, the etiology for chronic nausea, vomiting seems to be more related to possible cannabinoid-hyperemesis syndrome, given the relatively negative and/or normal findings upon studies obtained thus far and with her chronic use of marijuana. Chronic nausea and vomiting syndrome are also within the differential as are rumination syndrome, cyclical vomiting syndrome, and possible adrenal insufficiency (although labs do not reflect this). RECOMMENDATIONS: 1. Would continue TPN. 2. Would continue aggressive antiemetic support. 3. Advance diet as tolerated, but may require more of a liquid diet to maintain adequate oral nutrition. Would consider TPN to be administered on a home health basis in a short term. We will continue to follow. Dr. Chu will be on-call this weekend. Please direct any additional questions toward him. Job ID: [id number]
[2019-04-23] MEDS: Sodium Acetate 2 mEq/ml 40 MEQ, Sodium Chloride 30 MEQ, Potassium Chloride 20 MEQ, Pota... IV SCH (21:43)
[2019-04-24] MEDS: Famotidine 20 MG TAB PO SCH (09:47)
[2019-04-24] MEDS: levETIRAcetam 500 MG TAB PO SCH ×2 (09:48→20:00)
[2019-04-24] MEDS: Enoxaparin Sodium 30 MG/0.3 ML SYRINGE SC SCH (09:48)
--- NOTE | 2019-04-24 10:17 | PRG ---
DATE OF SERVICE: 04/24/2019 SUBJECTIVE: The patient is seen and examined at bedside. She vomited yesterday and she has some abdominal discomfort after that. OBJECTIVE: VITAL SIGNS: Blood pressure is 105/78, pulse is 75, temperature is 98, respirations 16, O2 saturation is 98% on room air. HEENT: Head is atraumatic and normocephalic. Eyes are PERRLA. Sclerae are nonicteric. Oral mucosa is moist. NECK: Supple. LUNGS: Clear. HEART: S1 and S2 normal. ABDOMEN: Soft, although tender in the epigastric area to palpation. No guarding. No masses. EXTREMITIES: No clubbing, cyanosis, or edema. NEUROLOGIC: She is alert and oriented x4. LABORATORY DATA: Glycemia is ranging from 95 to 112. IMPRESSION: 1. Nausea, vomiting, abdominal pain. The patient is able to tolerate liquids, but as soon as she starts advancing the diet, she starts vomiting. We will give her more time for the stomach to settle down. In the meantime, she is going to get total parenteral nutrition and we will find out whether we can do total parenteral nutrition at home. Case Management is consulted. 2. Severe malnutrition secondary to #1. 3. History of lupus. 4. History of seizures. 5. Familial adenomatous polyposis. 6. Hiatal hernia. 7. Status post total colectomy with J-pouch formation and testing for lupus came back negative. We will continue current regimen, and as I mentioned above, we will find out from case finishing machine adjuster whether total parenteral nutrition can be used at home. Job ID: [id number]
--- NOTE | 2019-04-24 12:38 | PRG ---
DATE OF SERVICE: 04/24/2019 SUBJECTIVE: Ms. Polo says she is feeling okay today. She has not vomited so far. She was able to keep down one can of Ensure so far today. Abdominal discomfort persists, primarily on the left side. She did have a bowel movement earlier today. OBJECTIVE: VITAL SIGNS: Temperature 98.2, pulse 81, blood pressure 107/76, and 97% oxygen saturation on room air. GENERAL: No acute distress. Cachectic. HEART: Regular rate and rhythm. LUNGS: Clear to auscultation bilaterally. ABDOMEN: Bowel sounds present. The abdomen is flat and soft. Some tenderness to palpation in the left side of the abdomen, but no guarding or rebound tenderness. EXTREMITIES: No peripheral edema. LABORATORY STUDIES: Glucose 101. No other new labs today. ASSESSMENT AND PLAN: 1. Persistent nausea and vomiting. 2. Marijuana use. Dr. Suarez has performed an extensive fairly recent workup including negative or unrevealing EGD, colonoscopy, CT of abdomen, CT of head, gastric emptying study, and lab evaluation. There is some suspicion for possible cannabinoid hyperemesis syndrome. I discussed this with the patient and she has agreed to completely stop using any marijuana. She has tolerated a can of Ensure today, but has difficulty with any solid food or even with Cream of Wheat. I think that if we can get her up to 3 to 4 cans of Ensure per day and otherwise, continue supportive care with antiemetics, that she could potentially be discharged from the hospital. Otherwise, I know that arrangements are being made for possible home TPN. Job ID: [id number]
[2019-04-24] MEDS: Acetaminophen 325 MG TAB PO PRN (15:01)
[2019-04-24] MEDS: Sodium Acetate 2 mEq/ml 40 MEQ, Sodium Chloride 30 MEQ, Potassium Chloride 20 MEQ, Pota... IV SCH (22:03)
[2019-04-25] MEDS: Famotidine 20 MG TAB PO SCH (08:34)
[2019-04-25] MEDS: Metoclopramide HCl 10 MG/2 ML VIAL IVP SCH ×2 (08:34→16:14)
[2019-04-25] MEDS: levETIRAcetam 500 MG TAB PO SCH ×2 (08:34→23:13)
[2019-04-25] MEDS: Enoxaparin Sodium 30 MG/0.3 ML SYRINGE SC SCH (08:34)
[2019-04-25 09:00] LABS: #Eosinphils 0.1 thou/uL (0.0-0.7); #Lymphocytes 1.5 thou/uL (1.20-3.40); #Monocytes 0.5 thou/uL (0.11-0.59); #Neutrophils 2.8 thou/uL (1.40-6.50); %Basophils 0.9 % (0.0-1.0); %Eosinophils 1.4 % (0.0-10.0); %Lymphocytes 30.6 % (21.0-51.0); %Monocytes 10.1 % (0.0-10.0); Hemoglobin 13.9 g/dL (12.0-16.0); Mean Corpuscular HGB CONC 32.2 g/dL (32.0-36.0); Mean Corpuscular Hemoglobin 30.6 pg (27.0-31.0); Mean Corpuscular Volume 94.9 fL (78.0-98.0); Mean Platelet Volume 8.9 fL (7.4-10.4); Platelet Count 156 thou/uL (130-400); RBC Distribution Width 12.3 % (11.5-14.5); Red Blood Cell (RBC) Count 4.55 mill/uL (4.20-5.40); White Blood Cell (WBC) Count 4.8 thou/uL (4.8-10.8)
--- NOTE | 2019-04-25 09:18 | PRG ---
DATE OF SERVICE: 04/25/2019 SUBJECTIVE: Mrs. Polo says she is feeling about the same, pretty discouraged as the nausea persists. She had 1 episode of emesis yesterday with Cream of Wheat. She is able to hold down the MightyShakes. PHYSICAL EXAMINATION: VITAL SIGNS: Temperature 98.2, pulse 80, blood pressure 123/82, 96% oxygen saturation on room air. GENERAL: No acute distress. HEART: Regular rate and rhythm. LUNGS: Clear to auscultation bilaterally. ABDOMEN: Soft, nontender to palpation. EXTREMITIES: No peripheral edema. LABORATORY STUDIES: Glucose 96. No other new labs today. ASSESSMENT AND PLAN: 1. Persistent nausea and vomiting. 2. Marijuana use. Extensive fairly recent workup has included negative for unrevealing EGD, colonoscopy, CT of the abdomen, CT of the head, gastric emptying study, and lab evaluation. There is some suspicion for possible cannabinoid hyperemesis syndrome, though this is not certain. The patient is going to completely stop using any marijuana. I would like to try her on low-dose IV Reglan today, 5 mg every 8 hours, to see how much this helps. Continue Zofran as needed. Again, if she is indeed able to tolerate 3 to 4 cans of Ensure or MightyShakes per day, then I think she could potentially be discharged from the hospital without TPN. Otherwise, I note that arrangements are being made for possible home TPN. We will check labs tomorrow morning. Job ID: [id number]
[2019-04-25 09:22] LABS: Anion Gap 13 mmol/L (10-20); BUN (Urea Nitrogen) 24 mg/dL (9.8-20.1); Calc. Creatinine Clearance 58 mL/min (70-130); Calcium 10.1 mg/dL (7.8-10.44); Carbon Dioxide 29 mmol/L (22-29); Chloride 101 mmol/L (98-107); Estimated GFR-MDRD 88; Glucose 105 mg/dL (70-105); Potassium 4.6 mmol/L (3.5-5.1); Sodium 138 mmol/L (136-145)
--- NOTE | 2019-04-25 09:35 | PRG ---
DATE OF SERVICE: 04/25/2019 SUBJECTIVE: The patient is seen and examined at bedside. She was able to keep her shakes down yesterday. Dr. Chu saw her last night and he decided to give her Reglan to see whether this can help with her vomiting. She vomits mainly on solid foods. She still has some abdominal discomfort, mainly in the lower parts and pelvis. OBJECTIVE: VITAL SIGNS: Blood pressure 123/82, pulse is 80, temperature is 98.2, respirations 16, O2 saturation is 96% on room air. HEENT: Her head is atraumatic and normocephalic. Eyes are PERRLA. Sclerae are nonicteric. Oral mucosa is moist. NECK: Supple. LUNGS: Clear. HEART: S1, S2 normal. ABDOMEN: Soft. Mildly tender in pelvic area and hypogastric area. No guarding. No masses. EXTREMITIES: No clubbing, cyanosis, or edema. NEUROLOGICAL EXAMINATION: Intact. SKIN: Looks better daily. There is no any problem with her TPN infusion. LABORATORY DATA: White count is 4.8, hemoglobin 13.9, hematocrit 43.2, platelet count is a 156. IMPRESSION: 1. Nausea, vomiting, and abdominal pain, status post thorough GI workup. She was started on Reglan by Dr. Chu who is senior control systems engineer for Dr. Suarez this weekend. She will continue her shakes. She will continue her TPN and we will see whether she can be discharged home on TPN. 2. Severe malnutrition secondary to #1. 3. History of lupus with negative markers. 4. History of seizures. 5. Familial adenomatous polyposis. 6. Hiatal hernia. 7. Status post total colectomy with J-pouch formation. Job ID: [id number]
[2019-04-25] MEDS: Sodium Acetate 2 mEq/ml 40 MEQ, Sodium Chloride 30 MEQ, Potassium Chloride 20 MEQ, Pota... IV SCH (22:44)
[2019-04-26] MEDS: Metoclopramide HCl 10 MG/2 ML VIAL IVP SCH (02:36)
[2019-04-26 04:54] LABS: #Eosinphils 0.1 thou/uL (0.0-0.7); #Lymphocytes 1.6 thou/uL (1.20-3.40); #Monocytes 0.6 thou/uL (0.11-0.59); #Neutrophils 1.9 thou/uL (1.40-6.50); %Basophils 0.7 % (0.0-1.0); %Eosinophils 1.7 % (0.0-10.0); %Lymphocytes 38.4 % (21.0-51.0); %Monocytes 13.5 % (0.0-10.0); %Neutrophils 45.8 % (42.0-75.0); Hemoglobin 12.2 g/dL (12.0-16.0); Mean Corpuscular HGB CONC 33.2 g/dL (32.0-36.0); Mean Corpuscular Hemoglobin 31.5 pg (27.0-31.0); Mean Corpuscular Volume 94.7 fL (78.0-98.0); Mean Platelet Volume 9.3 fL (7.4-10.4); Platelet Count 141 thou/uL (130-400); RBC Distribution Width 12.5 % (11.5-14.5); Red Blood Cell (RBC) Count 3.86 mill/uL (4.20-5.40); White Blood Cell (WBC) Count 4.2 thou/uL (4.8-10.8)
[2019-04-26 05:18] LABS: ALT (SGPT) 32 U/L (8-55); AST (SGOT) 26 U/L (5-34); Albumin 3.9 g/dL (3.5-5.0); Alkaline Phosphatase 69 U/L (40-150); Anion Gap 9 mmol/L (10-20); BUN (Urea Nitrogen) 24 mg/dL (9.8-20.1); Bilirubin, Total 0.3 mg/dL (0.2-1.2); Calc. Creatinine Clearance 59 mL/min (70-130); Calcium 9.5 mg/dL (7.8-10.44); Carbon Dioxide 31 mmol/L (22-29); Chloride 102 mmol/L (98-107); Estimated GFR-MDRD 90; Globulin 2.4 g/dL (2.4-3.5); Glucose 98 mg/dL (70-105); Lipase 25 U/L (8-78); Potassium 4.4 mmol/L (3.5-5.1); Protein, Total 6.3 g/dL (6.0-8.3); Sodium 138 mmol/L (136-145)
[2019-04-26] MEDS ORDERED: Metoclopramide HCl 10 MG TAB PO SCH ×2 (08:15→11:30)
[2019-04-26] MEDS: Enoxaparin Sodium 30 MG/0.3 ML SYRINGE SC SCH (08:57)
[2019-04-26] MEDS: levETIRAcetam 500 MG TAB PO SCH (08:57)
[2019-04-26] MEDS: Famotidine 20 MG TAB PO SCH (08:57)
--- NOTE | 2019-04-26 09:46 | PRG ---
DATE OF SERVICE: 04/26/2019 SUBJECTIVE: Ms. Polo had a much better day yesterday and is feeling pretty well this morning. She did not have any vomiting. She had one episode of nausea. She was able to keep down Cream of Wheat and half a bowl of rice yesterday as well as all of her MightyShakes. She is hoping to be discharged from the hospital if possible. OBJECTIVE: VITAL SIGNS: Temperature 97.9, pulse 63, blood pressure 98/65, and 97% oxygen saturation on room air. GENERAL: No acute distress. HEART: Regular rate and rhythm. LUNGS: Clear to auscultation bilaterally. ABDOMEN: Bowel sounds present. Soft and nontender to palpation. EXTREMITIES: No peripheral edema. LABORATORY STUDIES: WBC 4.2, hemoglobin 12.2, platelets 141. Sodium 138, potassium 4.4, BUN 24, creatinine 0.68, and glucose 90. LFTs all remain normal. Total bilirubin 0.3, alkaline phosphatase 69, AST 26, ALT 32, lipase 25. ASSESSMENT AND PLAN: 1. Persistent nausea and vomiting, improved a bit since yesterday. 2. Marijuana use. 3. Familial adenomatous polyposis. Extensive fairly recent workup has included negative or unrevealing esophagogastroduodenoscopy, colonoscopy, CT of the abdomen, CT of the head, gastric emptying study, and lab evaluation. There has been some suspicion for possible cannabinoid hyperemesis syndrome, though, this is not certain. The patient is going to completely stop using any marijuana. She did well yesterday and this morning after starting low-dose IV Reglan. I am not sure how much of her improvement can really be attributed to this, but it would certainly be worthwhile to continue it at least in the short term. The patient is able to keep down her nutritional supplements if not so much solid food yet. I think it would be reasonable to discharge from the hospital if she is feeling well later today, on oral Reglan 5 mg three times daily with meals and at night. She can follow up in the GI Clinic with Dr. Suarez or one of his physician assistants within the next couple of weeks. Hopefully, the patient will do well with this and would not have to go back on TPN. Job ID: [id number]
[2019-04-26 15:40] VITALS: BP 107/81; TEMP 98
--- NOTE | 2019-04-27 02:28 | DIS ---
DATE OF ADMISSION: 04/16/2019 DATE OF DISCHARGE: 04/26/2019 CONSULTANTS: Dr. Munroe, Gastrointestinal Service. Dr. Suarez, Gastrointestinal Service and Dr. Chu, Gastrointestinal Service. FINAL DIAGNOSES: 1. Persistent nausea and vomiting, subsided. 2. Marijuana use, suspected cannabinoid hyperemesis syndrome with extensive fairly recent workup included negative EGD, colonoscopy, CT of the abdomen, CT of the head, gastric emptying studies, and labs. 3. Severe malnutrition. 4. History of lupus with negative markers. 5. History of seizures. 6. Familial adenomatous polyposis. 7. Hiatal hernia. 8. Status post total colectomy with J-pouch formation. HOSPITAL COURSE: The patient was a 58-year-old female, who presented to the emergency room after having a seizure in the lobby of the hospital just prior to arrival. Apparently, she seized 3 times after she arrived in the emergency room 5 minutes apart and less than 1 minute. Seizures described by witnessed. She was at the hospital to get the preliminary paperwork and contrast for an MRI which was scheduled for her increased weight loss and inability to eat or drink much without vomiting and she had weight loss, nausea, and vomiting on outpatient basis and she was seen by Dr. Suarez in the GI Clinic and she had multiple tests done for diagnostic purposes, but nothing was revealing any problem. She has a history of seizures in the past, but at least for the last 2 years, she did not have any. Given Ativan and bolus of fosphenytoin and she remained seizure free after medications. CT of the brain showed no mass or bleed or any significant intracranial process. The CT of the cervical spine showed no fracture or subluxation. Only postsurgical changes related to anterior cervical fusion at C5-C6. CT angiogram of the head and neck was negative. Blood work was unremarkable. Toxicology came back positive for cannabinoids. The past medical history is positive for lupus, FAP, hiatal hernia, and weight loss. She was admitted to the Stroke Unit for further workup. She was seen by Dr. Ross, who recommended Keleatha to continue. Followup MRI of the brain showed mild chronic ischemic white matter changes. The patient was severely malnourished. She was seen by Dr. Munroe who was covering for Dr. Suarez. The patient was started on TPN after the midline was placed. She tolerated that without any problems. She is able to keep shakes down in her stomach, but any solid food was each time she ate coming out back. The patient was placed on small dose of Reglan. Subsequently, she stopped vomiting and she was able to tolerate solid food without any nausea or vomiting. Today, she looks significantly better after few days of TPN and she is going to be discharged home with home health. DIET: She will stay on regular diet. ACTIVITIES: As tolerated. MEDICATIONS: At the time of discharge: 1. Zantac 300 mg once a day. 2. Keppra 500 mg twice a day. 3. Metoclopramide 5 mg a.c. and at bedtime. 4. Tylenol p.r.n. as needed. 5. Omeprazole 40 mg once a day. FOLLOWUP: She will follow up with the primary doctor in [address] Suarez in 2 weeks. DISCHARGE TIME SPENT: Less than 30 minutes. Job ID: [id number]
== END 2019-04-26 15:59 | disposition home health service (06) | DRG 100 ==
LOC: ERS 13:44 → 2SE 15:59 → OBSVTOIN 15:59
PROVIDERS: ADMIT Internal Medicine; ATTEND Internal Medicine
PROC: 3E0336Z Introduction of Nutritional Substance into Peripheral Vein, Percutaneous Approach (ICD-10-PCS; principal; 2019-04-19)
PROC: 02HV33Z Insertion of Infusion Device into Superior Vena Cava, Percutaneous Approach (ICD-10-PCS; 2019-04-19)
PROC: B548ZZA Ultrasonography of Superior Vena Cava, Guidance (ICD-10-PCS; 2019-04-19)
DX: G40.909 Epilepsy, unspecified, not intractable, without status epilepticus (principal); E43 Unspecified severe protein-calorie malnutrition; Z68.1 Body mass index [BMI] 19.9 or less, adult; R11.2 Nausea with vomiting, unspecified; K44.9 Diaphragmatic hernia without obstruction or gangrene; G83.84 Todd's paralysis (postepileptic); F12.10 Cannabis abuse, uncomplicated; K21.9 Gastro-esophageal reflux disease without esophagitis; F17.210 Nicotine dependence, cigarettes, uncomplicated; M19.90 Unspecified osteoarthritis, unspecified site; Z90.49 Acquired absence of other specified parts of digestive tract; Z98.1 Arthrodesis status; Z90.710 Acquired absence of both cervix and uterus
CPT/HCPCS: 36415; 36416; 36569; 51701; 70450; 70496; 70498; 70551; 72125; 74177; 80048; 80053; 80306; 80307; 81003; 83690; 83735; 84100; 85025; 85652; 86038; 86160; 86225; 93005; 94760; 96365; 96375; A4217; A4353; C1751; J1644; J1650; J2060; J2405; J2765; J3475; J3480; J3490; J8597; Q2009; Q9966

== ENCOUNTER 2019-05-26 13:15 | Inpatient (IN) | payer MEDICARE ==
[2019-05-26 14:30] LABS: #Monocytes 0.4 thou/uL (0.11-0.59); #Neutrophils 3.4 thou/uL (1.40-6.50); %Basophils 0.3 % (0.0-1.0); %Eosinophils 0.5 % (0.0-10.0); %Lymphocytes 34.3 % (21.0-51.0); %Neutrophils 58.9 % (42.0-75.0); Hemoglobin 13.3 g/dL (12.0-16.0); Mean Corpuscular HGB CONC 34.7 g/dL (32.0-36.0); Mean Platelet Volume 8.1 fL (7.4-10.4); Platelet Count 193 thou/uL (130-400); RBC Distribution Width 12.7 % (11.5-14.5); Red Blood Cell (RBC) Count 4.16 mill/uL (4.20-5.40); White Blood Cell (WBC) Count 5.8 thou/uL (4.8-10.8)
[2019-05-26 14:49] LABS: ALT (SGPT) 12 U/L (8-55); AST (SGOT) 20 U/L (5-34); Albumin 4.4 g/dL (3.5-5.0); Alkaline Phosphatase 69 U/L (40-150); Anion Gap 11 mmol/L (10-20); BUN (Urea Nitrogen) 10 mg/dL (9.8-20.1); Bilirubin, Total 0.4 mg/dL (0.2-1.2); Calc. Creatinine Clearance 0 mL/min (70-130); Calcium 9.8 mg/dL (7.8-10.44); Carbon Dioxide 27 mmol/L (22-29); Chloride 104 mmol/L (98-107); Estimated GFR-MDRD 78; Globulin 2.5 g/dL (2.4-3.5); Glucose 84 mg/dL (70-105); Lipase 29 U/L (8-78); Potassium 3.9 mmol/L (3.5-5.1); Protein, Total 6.9 g/dL (6.0-8.3); Sodium 138 mmol/L (136-145)
[2019-05-26 15:17] LABS: Lactic Acid 0.9 mmol/L (0.5-2.2)
[2019-05-26] MEDS ORDERED: ISOVUE-370 76%-LOCM 1 ML ONE (15:46)
--- NOTE | 2019-05-26 15:52 | CT ---
CT ABDOMEN AND PELVIS WITH IV CONTRAST: DATE: 05/26/2019. PROVIDED CLINICAL HISTORY: Constipation and abdominal pain. COMPARISON: 04/19/2019. FINDINGS: The visualized lung bases are free of significant opacity. The solid abdominal organs demonstrate an unremarkable CT appearance. Postoperative changes of prior colectomy are redemonstrated. There is no bowel dilatation, inflammat ory fat stranding, free fluid, or free air apparent. There is moderate colonic fecal retention at th e region of the enterorectal anastomosis. Scattered vascular calcifications are seen. The osseous structures demonstrate no concerning lytic o r blastic lesions. IMPRESSION: No evidence for an acute process. POS: TPC
[2019-05-26 16:11] LABS: Bilirubin Negative (Negative); Blood, Urine Negative (Negative); Clarity Clear (Clear); Glucose, Urine (Dipstick) Normal (Negative); Leukocyte Negative Leu/uL (Negative); Nitrite Negative (Negative); Protein, Urine (Dipstick) Negative (Neg-Trace); Urobilinogen Normal mg/dL (Less than 2)
[2019-05-26] MEDS ORDERED: Ondansetron PF 4 MG/2 ML Vial IVP PRN (18:05)
[2019-05-26] MEDS ORDERED: Acetaminophen 325 MG TAB PO PRN (18:05)
[2019-05-26] MEDS ORDERED: Ondansetron ODT 4 MG TAB SL PRN (18:05)
[2019-05-26] MEDS ORDERED: Ondansetron ODT 4 MG TAB PO PRN (19:00)
[2019-05-26] MEDS ORDERED: Naproxen 500 MG TAB PO PRN (19:13)
--- NOTE | 2019-05-26 19:48 | HP ---
CHIEF COMPLAINT: "Stomach problems." HISTORY OF PRESENT ILLNESS: A 59-year-old female with history of familial adenomatous polyposis, status post colectomy, severe protein-calorie malnutrition, Lupus, who presents to the emergency room per the instruction of her resource coordinator with a complaint of abdominal pain. The patient states that over the past 3 weeks that things "are not moving." She states that she has some liquid stool, however, no significant solid stool, feels bloated, has early satiety and cramping, intermittent abdominal pain. She has tried three bottles of magnesium citrate over this time period, Colace two tablets at night over the past 2 weeks , and two enemas without any change. She has nausea, vomiting, and increase of reflux symptoms, reports that the episodes are becoming more frequent with time. Precipitating factors are solid food intake, relieving factors she reports [place] shakes and ice cream. She takes Aleve 1 or 2 times per day for the arthritis- type pain that she associates with lupus. She denies any dyspnea, dysuria, or hematuria. The patient is normally followed by Dr. Suarez of Gastroenterology. Her last hospitalization here was in April for persistent nausea, vomiting, severe malnutrition, and seizures, and she was discharged to home. In the emergency room, the patient received 1 L of IV fluid and hospitalist called. PAST SURGERY HISTORY: 1. Familial adenomatous polyposis, status post colectomy. 2. Kidney stones. 3. Liver cyst. 4. Lupus. 5. 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 PAST SURGICAL HISTORY: 1. Neck. 2. Right wrist. 3. Appendectomy. 4. Cholecystectomy. 5. Total colectomy. SOCIAL HISTORY: She uses marijuana 2 to 3 times per day, smokes tobacco one pack per day, lives with her mom and brother. Her mom, Rashad Webster, is her surrogate decision maker and she is a full code. FAMILY HISTORY: Significant for mom with melanoma. REVIEW OF SYSTEMS: Positive for early satiety, cough, racing heart intermittently. Negative for dyspnea, dysuria, or hematuria. All remaining review of systems are reviewed and negative. MEDICATIONS AT HOME: 1. Medication for reflux, she does not recall the name. 2. Lyrica 75 mg b.i.d. 3. Prilosec at bedtime. PHYSICAL EXAMINATION: VITAL SIGNS: Her blood pressure is 134/89, pulse 79, respirations 15, temperature 97.9, sats 100% on room air. GENERAL: Awake, alert, responsive, cachectic appearing female, in no apparent distress, able to answer questions. HEENT: Her pupils are equal and round. Oral mucosa is pink and moist. NECK: Supple, nontender. LYMPHATICS: No palpable cervical or supraclavicular lymphadenopathy. LUNGS: Clear to auscultation bilaterally. HEART: Normal S1 and S2. Regular rate and rhythm. No significant murmur. ABDOMEN: Soft. Present bowel sounds. Mild tenderness to palpation throughout. No rebound or guarding and no palpable abnormality. SKIN: No exanthems. VASCULAR: 2+ dorsalis pedis pulses. NEURO: No focal deficits. PSYCH: Appears euthymic. LABORATORY DATA: Personally reviewed. CBC; 5.8, 13.3, 38.3, and 193. Renal panel; 138, 3.9, 104, 27, 10, 0.76, and 84. LFTs are negative. Lipase is 29. Urinalysis; specific gravity 1.053, otherwise negative. CT of the abdomen and pelvis is personally reviewed, which shows moderate fecal retention at the enterorectal anastomosis, postoperative changes, scattered vascular calcifications. Overall, negative for any acute process. IMPRESSION: 1. Nausea, vomiting, abdominal pain in a patient with prior multiple abdominal surgeries to include a total colectomy with fecal retention, however, no signs of bowel obstruction. 2. Severe protein-calorie malnutrition. 3. Lupus. 4. Neuropathy, feet. 5. History of renal stones, asymptomatic. 6. History of liver cysts. PLAN: 1. Admission to the hospital. 2. I contacted Dr. Munroe, who is on-call for GI, who recommended a trial of lactulose to help with passing the stool. We will start this tonight and consult GI, Dr. Suarez in the morning. 3. IV fluid hydration with dextrose containing fluids. 4. Continuing her Lyrica, the PPIs, and managing any nausea and vomiting. 5. We will continue the Aleve as the patient reports it is one of the few medications she can take for chronic pain. 6. Further recommendations per GI. 7. Dietitian consult given the severe malnutrition. 8. DVT prophylaxis. The patient is ambulatory and will use SCDs. 9. GI prophylaxis not indicated. The patient is on a PPI. We will continue that. 10. Code status is full, and surrogate decision maker is noted above. 11. I reviewed the plan of care with the patient, who demonstrates understanding , no questions or further needs at the end of evaluation. 12. The patient is at high risk given age, comorbidities, and current presentation. Job ID: [id number] MTDD
[2019-05-26] MEDS: Dextrose 5 %-0.45 % NaCl 1,000 ML IV SCH (20:00)
[2019-05-26] MEDS: Pregabalin 75 MG CAP PO SCH (20:03)
[2019-05-27 06:01] LABS: #Eosinphils 0.1 thou/uL (0.0-0.7); #Lymphocytes 1.6 thou/uL (1.20-3.40); #Monocytes 0.4 thou/uL (0.11-0.59); #Neutrophils 1.9 thou/uL (1.40-6.50); %Basophils 0.9 % (0.0-1.0); %Eosinophils 2.3 % (0.0-10.0); %Lymphocytes 39.9 % (21.0-51.0); %Monocytes 9.1 % (0.0-10.0); %Neutrophils 47.7 % (42.0-75.0); Hemoglobin 12.2 g/dL (12.0-16.0); Mean Corpuscular HGB CONC 34.5 g/dL (32.0-36.0); Mean Corpuscular Hemoglobin 32.7 pg (27.0-31.0); Mean Corpuscular Volume 94.7 fL (78.0-98.0); Platelet Count 162 thou/uL (130-400); RBC Distribution Width 12.7 % (11.5-14.5); Red Blood Cell (RBC) Count 3.75 mill/uL (4.20-5.40)
[2019-05-27 06:25] LABS: Anion Gap 9 mmol/L (10-20); BUN (Urea Nitrogen) 7 mg/dL (9.8-20.1); Calc. Creatinine Clearance 58 mL/min (70-130); Calcium 8.8 mg/dL (7.8-10.44); Carbon Dioxide 23 mmol/L (22-29); Chloride 110 mmol/L (98-107); Estimated GFR-MDRD 89; Glucose 92 mg/dL (70-105); Potassium 3.6 mmol/L (3.5-5.1); Sodium 138 mmol/L (136-145)
[2019-05-27] MEDS: Dextrose 5 %-0.45 % NaCl 1,000 ML IV SCH ×2 (08:08→23:11)
[2019-05-27] MEDS: Pregabalin 75 MG CAP PO SCH ×2 (08:08→20:10)
[2019-05-27] MEDS ORDERED: Loratadine 10 MG TAB PO PRN (09:11)
[2019-05-27] MEDS ORDERED: Diabetic Tussin 200 MG/10 ML UDCUP PO PRN (09:11)
[2019-05-27] MEDS ORDERED: Senokot S 8.6-50 MG TAB PO PRN (09:11)
[2019-05-27] MEDS ORDERED: Sodium Chloride 0.65% Nasal 44 ML BOT EA NARE PRN (09:11)
[2019-05-27] MEDS ORDERED: hydrALAZINE 20 MG/ML VIAL SLOW IVP PRN (09:11)
[2019-05-27] MEDS ORDERED: Bisacodyl 10 MG SUPP PR PRN (09:11)
[2019-05-27] MEDS: Ondansetron PF 4 MG/2 ML Vial IVP PRN ×2 (09:56→18:11)
[2019-05-27] MEDS: cefTRIAXone\\ROCEPHIN 1 GM in Sodium Chloride 0.9% 100 ML IVPB SCH (09:57)
--- NOTE | 2019-05-27 15:30 | RAD ---
XR Abdomen 2 View History: Fecal impaction Comparison: CT prior day Findings: No dilated air-filled loops of large or small bowel. No abnormal calcifications projecting over the renal shadows. Mild gaseous distention patulous sigmoid colon. Impression: No evidence for bowel obstruction.
--- NOTE | 2019-05-27 15:50 | PDOC.HOSPP ---
- Subjective Encounter Date: 05/27/19 Encounter Time: 11:00 Subjective: Patient seen and examined. pt is NPO, she has liquid BM No new complaints. No overnight events - Objective Vital Signs & Weight: Vital Signs (12 hours) Temp Pulse Resp BP Pulse Ox 05/27/19 13:40 86 16 97 05/27/19 12:04 98.0 F 55 L 16 120/73 99 05/27/19 09:40 96 05/27/19 07:45 97.8 F 59 L 16 108/70 96 05/27/19 04:00 97.5 F L 64 16 107/67 96 Weight Admit Weight 88 lb Weight 89 lb I&O: 05/26/19 05/27/19 05/28/19 06:59 06:59 06:59 Intake Total 780 Balance 780 Result Diagrams: 05/27/19 05:25 05/27/19 05:25 Radiology Reviewed by me: Yes (xray abdomen noted) ROS - Review of Systems Constitutional: reports: weakness. denies: fever, chills, sweats, malaise, other Eyes: denies: pain, vision change, conjunctivae inflammation, eyelid inflammation, redness, other ENT: denies: ear pain, ear discharge, nose pain, nose discharge, nose congestion , mouth pain, mouth swelling, throat pain, throat swelling, other Respiratory: denies: cough, dry, shortness of breath, hemoptysis, SOB with excertion, pleuritic pain, sputum, wheezing, other Cardiovascular: denies: chest pain, palpitations, orthopnea, paroxysmal noc. dyspnea, edema, light headedness, other Gastrointestinal: reports: nausea, diarrhea. denies: vomitting, abdominal pain , constipation, melena, hematochezia, other Genitourinary: denies: dysuria, frequency, incontinence, hematuria, retention, other Musculoskeletal: denies: neck pain, shoulder pain, arm pain, back pain, hand pain, leg pain, foot pain, other - Medication Medications: Active Medications Generic Name Dose Route Start Last Admin Trade Name Freq PRN Reason Stop Dose Admin Dextrose/Sodium Chloride 1,000 mls @ 75 mls/hr 05/26/19 19:15 05/27/19 08:08 D5 1/2 Ns IV 1,000 mls .[id number] GEORGINA Administration Ceftriaxone Sodium 1 gm/ 100 mls @ 200 mls/hr 05/27/19 10:00 05/27/19 09:57 Sodium Chloride IVPB 100 mls Q24HR GEORGINA Administration Lactulose 30 gm 05/26/19 19:03 05/27/19 08:11 Lactulose PO 30 gm QID PRN Administration Constipation Ondansetron HCl 4 mg 05/26/19 19:00 05/27/19 09:56 Zofran IVP 4 mg Q6H PRN Administration Nausea/Vomiting Pantoprazole Sodium 40 mg 05/26/19 21:00 05/26/19 20:00 Protonix PO 40 mg HS GEORGINA Administration Pregabalin 75 mg 05/26/19 21:00 05/27/19 08:08 Lyrica PO 75 mg BID GEORGINA Administration - Exam NAD, awake alert Eye: PERRL, anicteric sclera ENT: normocephalic atraumatic, no oropharyngeal lesions Neck: supple, symmetric, no JVD Heart: RRR, no murmur, no gallops Respiratory: CTAB, no wheezes, no rales Gastrointestinal: soft, non-tender, non-distended Extremities: no cyanosis, no clubbing, no edema Skin: normal turgor, no lesions Neurological: CN's grossly intact, no focal deficits, no new deficit Musculoskeletal: normal tone, normal strength Psychiatric: normal affect, normal behavior Hosp A/P (1) UTI (urinary tract infection) Status: Acute (2) Abdominal pain Code(s): R10.9 - UNSPECIFIED ABDOMINAL PAIN Status: Acute (3) Nausea & vomiting Code(s): R11.2 - NAUSEA WITH VOMITING, UNSPECIFIED Status: Acute (4) Severe malnutrition Code(s): E43 - UNSPECIFIED SEVERE PROTEIN-CALORIE MALNUTRITION Status: Acute - Plan old records reviewed/req, continue antibiotics GI consulted will start rocephin for UTI medication reviewed as above symptomatic treatment diet advancement as per GI nutritional support
[2019-05-27] MEDS: Acetaminophen 325 MG TAB PO PRN (18:11)
--- NOTE | 2019-05-27 21:27 | CON ---
DATE OF CONSULTATION: 05/27/2019 CHIEF COMPLAINT: Abdominal pain, distention, and constipation. HISTORY OF PRESENT ILLNESS: Ms. Polo is a 59-year-old woman with a history of familial adenomatous polyposis syndrome, who has been followed by Dr. Suarez as an outpatient. She came in back in November of this year with nausea and vomiting and abdominal pain. Dr. Suarez performed EGD and colonoscopy on 12/15/2018. The upper endoscopy was unremarkable. The colonoscopy showed stool retained in the rectum with a tight anastomosis between the ileum and rectum. The scope could not be passed through the anastomosis. She had a gastric emptying scan, which was unremarkable. Biopsies of the esophagus were normal. The patient complained of anorexia and a 35 to 40-pound weight loss over the last year. She has had no obvious source for the weight loss identified. She had been smoking marijuana, and Dr. Suarez advised cessation of marijuana in case she has a cannabis hyperemesis syndrome related to the chronic nausea and vomiting. Over the last three weeks, she has had increased abdominal distention and constipation. She took three bottles of magnesium citrate over the last week and ultimately ended up just passing liquidy stool, but due to ongoing abdominal pain and discomfort, she came back to the emergency room last night. She was just passing liquid stool at that time. She has been taking stool softeners with Colace. She tried enemas without help. She had a CT scan performed in the emergency room yesterday afternoon, which showed moderate small bowel fecal retention above the ileorectal anastomosis. She was given lactulose last night and this morning, and is just passing out liquid yellow stool with no substance. She has had no blood in the stool. Still has nausea but no vomiting today. No fever. She has been started on antibiotics for urinary tract infection. PAST MEDICAL HISTORY: Familial adenomatous polyposis syndrome, acid reflux, arthritis, peptic ulcer disease, and lupus. PAST SURGICAL HISTORY: Appendectomy, lysis of adhesions, hemorrhoidectomy, and subtotal colectomy. HABITS: She has been a smoker, pack a day. She has been smoking marijuana. No alcohol. FAMILY HISTORY: Negative for GI malignancy. ALLERGIES: CODEINE AND DEMEROL. OUTPATIENT MEDICATIONS: 1. Lyrica 75 mg twice daily. 2. Prilosec once daily. REVIEW OF SYSTEMS: Negative x10 systems reviewed except as stated in the history of present illness. PHYSICAL EXAMINATION: VITAL SIGNS: Temperature 98.1, pulse 62, and blood pressure 115/58. GENERAL: She is in no acute distress. She is alert and oriented x3. She is very thin and had muscle wasting. HEENT: Eyes have no scleral icterus. Oropharynx is clear without lesions. No cervical or supraclavicular lymphadenopathy. LUNGS: Clear to auscultation bilaterally. HEART: Regular rate and rhythm without murmur. ABDOMEN: Soft, minimal tenderness in the epigastric region and lower abdomen. Bowel sounds are present. EXTREMITIES: No lower extremity edema. RECTAL: Reveals an empty rectal vault. LABORATORY DATA: White blood cell count 4.0, hemoglobin 12.2, and platelets 162. Creatinine 0.68, bilirubin 0.4, AST 20, ALT 12, alkaline phosphatase 69, and albumin 4.4. IMPRESSION: 1. Epigastric and lower abdominal pain associated with abdominal distention and constipation. The constipation has been a more recent progressive problem. She has no stool in the rectal vault and has been passing liquidy stools with the laxatives; however, the CT scan still showed formed stool above the anastomosis. Colonoscopy back in December showed stricture at the ileorectal anastomosis that was too tight to pass the endoscope through. She might have stricturing of the ileorectal anastomosis leading to impaction above that area. The smoking and NSAID use could certainly worsen this. 2. History of familial adenomatous polyposis syndrome, status post subtotal colectomy. She has undergone surveillance upper endoscopy and colonoscopy in December by Dr. Suarez. 3. Chronic nausea. This could be related to bowel distention related to the ileorectal anastomosis stricture. She could have cannabis hyperemesis syndrome. RECOMMENDATIONS: 1. Stop NSAIDs. 2. Stop smoking. 3. Continue proton pump inhibitor daily. 4. I will plan for flex sig tomorrow to see if we can balloon dilate the ileocolonic stricture. Job ID: [id number]
[2019-05-28] MEDS: Pregabalin 75 MG CAP PO SCH ×2 (08:46→20:23)
[2019-05-28] MEDS: cefTRIAXone\\ROCEPHIN 1 GM in Sodium Chloride 0.9% 100 ML IVPB SCH (08:47)
[2019-05-28 10:25] VITALS: BMI 15.2
[2019-05-28] MEDS: Dextrose 5 %-0.45 % NaCl 1,000 ML IV SCH ×2 (10:49→20:17)
[2019-05-28] MEDS ORDERED: Promethazine HCl 25 MG/ML VIAL SLOW IVP PRN (12:49)
[2019-05-28] MEDS ORDERED: Ondansetron HCl/PF 4 MG/2 ML Vial IVP PRN (12:49)
[2019-05-28] MEDS ORDERED: Promethazine HCl 25 MG/ML VIAL IM PRN (12:49)
--- NOTE | 2019-05-28 13:26 | PDOC.HOSPP ---
- Subjective Encounter Date: 05/28/19 Encounter Time: 10:45 Subjective: no abd pain or nausea. Is npo for scope today - Objective Vital Signs & Weight: Vital Signs (12 hours) Temp Pulse Resp BP Pulse Ox 05/28/19 08:45 97 05/28/19 08:00 97.9 F 61 16 138/84 97 Weight Admit Weight 88 lb Weight 88 lb 11.777 oz I&O: 05/27/19 05/28/19 05/29/19 06:59 06:59 06:59 Intake Total 780 2084 Output Total 100 Balance 780 1984 Result Diagrams: 05/27/19 05:25 05/27/19 05:25 ROS - Medication Medications: Active Medications Generic Name Dose Route Start Last Admin Trade Name Freq PRN Reason Stop Dose Admin Acetaminophen 650 mg 05/26/19 19:00 05/27/19 18:11 Tylenol PO 650 mg Q4H PRN Administration Headache/Fever/Mild Pain (1-3) Dextrose/Sodium Chloride 1,000 mls @ 75 mls/hr 05/26/19 19:15 05/28/19 10:49 D5 1/2 Ns IV Not Given .[id number] GEORGINA Ceftriaxone Sodium 1 gm/ 100 mls @ 200 mls/hr 05/27/19 10:00 05/28/19 08:47 Sodium Chloride IVPB 100 mls Q24HR GEORGINA Administration Lactulose 30 gm 05/26/19 19:03 05/27/19 08:11 Lactulose PO 30 gm QID PRN Administration Constipation Ondansetron HCl 4 mg 05/26/19 19:00 05/27/19 18:11 Zofran IVP 4 mg Q6H PRN Administration Nausea/Vomiting Pantoprazole Sodium 40 mg 05/26/19 21:00 05/27/19 20:10 Protonix PO 40 mg HS GEORGINA Administration Pregabalin 75 mg 05/26/19 21:00 05/28/19 08:46 Lyrica PO 75 mg BID GEORGINA Administration Sodium Chloride 10 ml 05/27/19 21:00 05/28/19 08:47 Flush - Normal Saline IVF 10 ml Q12HR GEORGINA Administration - Exam NAD, awake alert Eye: PERRL, anicteric sclera ENT: normocephalic atraumatic, no oropharyngeal lesions Neck: supple, no JVD Heart: RRR, no rubs Respiratory: no wheezes, no rales Gastrointestinal: soft, non-tender, non-distended, normal bowel sounds Extremities: no clubbing, no edema Neurological: CN's grossly intact, no focal deficits Musculoskeletal: normal tone Psychiatric: normal affect, A&O x 3 Hosp A/P (1) ileorectal stricture Status: Acute (2) h/o familial adenomatous polyposis syndr Status: Chronic Plan: prior colectomy (3) UTI (urinary tract infection) Status: Acute Qualifiers: Urinary tract infection type: acute cystitis Hematuria presence: without hematuria Qualified Code(s): N30.00 - Acute cystitis without hematuria (4) Abdominal pain Code(s): R10.9 - UNSPECIFIED ABDOMINAL PAIN Status: Acute Qualifiers: Abdominal location: generalized Qualified Code(s): R10.84 - Generalized abdominal pain (5) Nausea & vomiting Code(s): R11.2 - NAUSEA WITH VOMITING, UNSPECIFIED Status: Resolved (6) Severe malnutrition Code(s): E43 - UNSPECIFIED SEVERE PROTEIN-CALORIE MALNUTRITION Status: Chronic - Plan for flexible sigmoidoscopy today continue iv fluids, protonix, lyrica and lactulose prn has not passed any solid stool yet
--- NOTE | 2019-05-28 14:16 | CT ---
CT Abdomen Pelvis WO Con 05/28/2019 1:08 PM HISTORY: Post surgery with stretching of sigmoid colon. Evaluate for perforation of the ilial pouch. History o f prior bowel resection and hysterectomy as well as cholecystectomy. COMPARISON: 05/26/2019 Technique: Multiple contiguous axial CT images are obtained through the abdomen and pelvis without IV contrast. Coronal reformats are provided. FINDINGS: This examination is limited for the evaluation of solid organs and vascular structures due to the lac k of intravenous contrast. Lower Chest: Lung bases are clear. Abdomen: Liver: Grossly normal nonenhanced CT appearance. Gallbladder: Surgically absent. Pancreas: Grossly normal nonenhanced CT appearance. Spleen: Small splenic granuloma present. Adrenals: Grossly normal nonenhanced CT appearance. Kidneys: Grossly normal nonenhanced CT appearance. No renal calculi are seen, and there is no hydrone phrosis. There is prominence of an extrarenal pelvis on the right. Ureters: No evidence of hydroureter, and no definite ureteral calculus is appreciated.. Pelvis: Urinary bladder: within normal limits. Reproductive Organs: Evidence of prior hysterectomy. Lymph Nodes: No definite enlarged lymph nodes are appreciated on this nonenhanced CT scan exam. Bowel: There are postsurgical changes related to a prior colectomy with small bowel to ileal pouch an astomosis versus anastomosis with a portion of the sigmoid colon. There is suggestion of narrowing at the level of the anastomosis, but there is no extravasation of contrast seen to suggest a leak. No adjacent free fluid or fluid collection is seen. No free intraperitoneal gas is identified. Loops of small bowel proximal to this region are normal in caliber. Peritoneum: No free fluid, free air, or fluid collection. Retroperitoneum: within normal limits. Vessels: Vascular calcifications are again seen in the abdominal aorta and involving the iliac arteri es.. Abdominal Wall: within normal limits. Bones: within normal limits. IMPRESSION: 1. Postsurgical changes related to colectomy. There is a small bowel anastomosis with a dilated loop of bowel within the lower pelvis which may represent an ileal pouch. This difficult to definitively confirm, and small bowel to sigmoid colon anastomosis is also a possibility. There is no evidence of extravasation of contrast to suggest a leak, and no free fluid, free intraperitoneal gas, or fluid collection is seen in the abdomen or pelvis. There does appear to be least a degree of narrowing in t he region of the anastomosis with normal caliber small bowel, but the small bowel proximal to this region is normal in caliber. 2. Above findings discussed with Dr. Cisneros on 05/28/2019 at 1409 hours.
--- NOTE | 2019-05-28 14:34 | OP ---
DATE OF PROCEDURE: 05/28/2019 PROCEDURE PERFORMED: Flexible sigmoidoscopy. DESCRIPTION OF PROCEDURE: Informed consent was obtained from the patient. She was sedated with total intravenous anesthesia. The rectal exam was performed and was normal. The upper endoscope was advanced easily to the distal ileum. There was stool staining in the roldan of the ileal pouch. There was an ileal rectal anastomosis/ileal anal anastomosis. There was a suture line in the ileum, where the creation of the ileal pouch was present. The opening from the ileal pouch to the terminal ileum was difficult to identify. Only a small opening could be identified ultimately through which a 10-mm balloon dilator was passed. Then, the balloon was passed through without resistance. The balloon was inflated to 10 mm and deflated. At this point, the tip of the dilator could then be seen still within the ileal pouch that this was a loop within the suture line. This was not dilated further. An extensive amount of time was then performed searching again for the actual ileum to ileal pouch opening. Finally, it was identified and the scope was passed through easily to the distal ileum. The mucosa of the distal ileum was normal. The ileum to ileal pouch opening was not strictured or tight. There was no evidence of obstruction above that site. IMPRESSION: 1. Ileal anal anastomosis. 2. Ileal pouch. 3. Small opening within the ileal pouch that was dilated to 10 mm with a balloon. However, this turns out to just tunnel through to the other side of the ileal pouch at a suture point. 4. The ileum to the ileal pouch opening ultimately was identified and was found to have no evidence of obstruction or stricture. RECOMMENDATIONS: 1. Scheduled MiraLAX daily. 2. I will repeat a CT to rule out any complication with the dilation, however, this all appears to be within the pouch. Job ID: [id number]
[2019-05-28] MEDS ORDERED: Iopamidol 370 76% 50 ML VIAL FS ONE (16:33)
[2019-05-28] MEDS ORDERED: PROPOFOL 200 MG/20 ML VIAL ONE (16:53)
[2019-05-28] MEDS ORDERED: Lidocaine 1% PF 5 ML VIAL ONE (16:53)
[2019-05-28] MEDS: Dicyclomine 10 MG CAP PO PRN ×2 (17:45→20:22)
[2019-05-28] MEDS: Acetaminophen 325 MG TAB PO PRN (20:22)
[2019-05-28] MEDS: Zolpidem Tartrate 5 MG TAB PO PRN (20:22)
[2019-05-28] MEDS: Ondansetron PF 4 MG/2 ML Vial IVP PRN (20:23)
[2019-05-29] MEDS: Dicyclomine 10 MG CAP PO PRN ×3 (07:32→19:59)
[2019-05-29] MEDS: Pregabalin 75 MG CAP PO SCH ×2 (07:32→19:59)
[2019-05-29] MEDS: cefTRIAXone\\ROCEPHIN 1 GM in Sodium Chloride 0.9% 100 ML IVPB SCH (07:33)
[2019-05-29] MEDS: Ondansetron PF 4 MG/2 ML Vial IVP PRN ×2 (07:36→19:59)
[2019-05-29] MEDS: Sulfameth/Trimethoprim DS 800-160mg TAB PO SCH ×2 (08:31→19:59)
[2019-05-29] MEDS: Dextrose 5 %-0.45 % NaCl 1,000 ML IV SCH ×2 (10:09→13:14)
--- NOTE | 2019-05-29 10:59 | PRG ---
DATE OF SERVICE: 05/29/2019 SUBJECTIVE: Ms. Polo feels much better today. I evaluated her last night and she was writhing in pain with severe diffuse cramping abdominal pain that started about 5 minutes after eating some solid food. This morning, she feels better, but still sore, more in her lower abdomen. She was given dicyclomine last night with improvement in her pain. OBJECTIVE: VITAL SIGNS: Temperature 98.1, pulse 53, blood pressure 112/72. GENERAL: She is in no acute distress. She is alert and oriented x3. EYES: Have no scleral icterus. LUNGS: Clear to auscultation bilaterally. HEART: Regular rate and rhythm without murmur. ABDOMEN: Soft. Mild tenderness in the lower abdomen without guarding. Bowel sounds are present. EXTREMITIES: No lower extremity edema. She is thin and frail. IMPRESSION: 1. Postprandial lower to diffuse cramping abdominal pain. Originally, we were thinking that this was related to constipation above her ileorectal anastomosis. However, her bowel has been cleared with laxatives and she has still has ongoing pain that now seems to be more postprandial. Endoscopy yesterday showed no stricture at the ileorectal anastomosis. Followup CT scan following the flexible sigmoidoscopy yesterday showed no evidence of perforation and now her pain is better today. I reviewed the contrast enhanced CT scans with Radiology. The celiac arteries and SMA appear patent without narrowing to suggest risk for ischemia as a cause of her abdominal pain. At this point, her pain seems to be more functional in nature. 2. She did have subcentimeter lesions too small to characterize in her liver on prior imaging. Subsequent CT scans with different venous phase contrast did not show these. These will require no further evaluation unless she has progressive enlargement on future imaging of any particular liver mass or lesion. 3. History of familial adenomatous polyposis, status post colectomy with ileorectal anastomosis. 4. She has a history of systemic lupus erythematosus. This has not been treated with immunosuppression per her report due to the history of familial adenomatous polyposis. Serosal involvement of lupus could be a consideration for her abdominal pain. However, this is not likely. I would see how she does with the antispasmodic medications and avoidance of nonsteroidal antiinflammatory drugs and then consider further evaluation of the lupus from there in the future. RECOMMENDATIONS: 1. Smoking cessation. 2. Avoid NSAIDs. She can take Tylenol instead. She has had problems with chronic pain, but cannot take opioids and has been on chronic NSAIDs for pain instead. At this point, she needs to transition to Tylenol or acetaminophen. 3. Dicyclomine 10 mg as needed for abdominal cramps. She did have significant improvement in her pain with the dicyclomine yesterday. 4. Once she is tolerating diet adequately, then she can likely discharge home tomorrow or the next day to follow up with Dr. Mayorga. 5. Continue pantoprazole 40 mg daily given the chronic NSAID use. Job ID: [id number]
--- NOTE | 2019-05-29 12:44 | PDOC.HOSPP ---
- Subjective Encounter Date: 05/29/19 Encounter Time: 09:00 Subjective: abd pain is better this am is not eating much, counselled to try ensure cans no nausea, is amb in room - Objective Vital Signs & Weight: Vital Signs (12 hours) Temp Pulse Resp BP Pulse Ox 05/29/19 11:33 98.3 F 60 16 116/69 97 05/29/19 08:00 98.1 F 53 L 16 112/72 99 05/29/19 04:57 97.9 F 50 L 16 92/54 L 96 Weight Admit Weight 88 lb Weight 86 lb 12.8 oz I&O: 05/28/19 05/29/19 05/30/19 06:59 06:59 06:59 Intake Total 2084 1895 Output Total 100 50 Balance 1984 1844 Result Diagrams: 05/27/19 05:25 05/27/19 05:25 ROS - Medication Medications: Active Medications Generic Name Dose Route Start Last Admin Trade Name Freq PRN Reason Stop Dose Admin Acetaminophen 650 mg 05/26/19 19:00 05/28/19 20:22 Tylenol PO 650 mg Q4H PRN Administration Headache/Fever/Mild Pain (1-3) Dicyclomine HCl 10 mg 05/28/19 17:32 05/29/19 07:32 Bentyl PO 10 mg QID PRN Administration abdominal pain Dextrose/Sodium Chloride 1,000 mls @ 75 mls/hr 05/26/19 19:15 05/29/19 10:09 D5 1/2 Ns IV 1,000 mls .[id number] GEORGINA Administration Lactulose 30 gm 05/26/19 19:03 05/27/19 08:11 Lactulose PO 30 gm QID PRN Administration Constipation Ondansetron HCl 4 mg 05/26/19 19:00 05/29/19 07:36 Zofran IVP 4 mg Q6H PRN Administration Nausea/Vomiting Pantoprazole Sodium 40 mg 05/26/19 21:00 05/28/19 20:22 Protonix PO 40 mg HS GEORGINA Administration Pregabalin 75 mg 05/26/19 21:00 05/29/19 07:32 Lyrica PO 75 mg BID GEORGINA Administration Sodium Chloride 10 ml 05/27/19 21:00 05/29/19 07:33 Flush - Normal Saline IVF 10 ml Q12HR GEORGINA Administration Trimethoprim/Sulfamethoxazole 1 tab 05/29/19 09:00 05/29/19 08:31 Bactrim Ds PO Not Given BID [facility] Zolpidem Tartrate 5 mg 05/27/19 09:11 05/28/19 20:22 Ambien PO 5 mg HSPRN PRN Administration Insomnia - Exam NAD, awake alert Eye: PERRL, anicteric sclera ENT: no oropharyngeal lesions, moist mucosa Neck: supple, no JVD Heart: RRR, no murmur Respiratory: no wheezes, no rales Gastrointestinal: soft, non-distended, normal bowel sounds, no guarding, no rigidity Gastrointestinal - other findings: mild tenderness in right LQ Extremities: no cyanosis, no edema Neurological: CN's grossly intact, no focal deficits Psychiatric: normal affect, A&O x 3 Hosp A/P (1) Abdominal pain Code(s): R10.9 - UNSPECIFIED ABDOMINAL PAIN Status: Acute Qualifiers: Abdominal location: generalized Qualified Code(s): R10.84 - Generalized abdominal pain (2) h/o familial adenomatous polyposis syndr Status: Chronic (3) UTI (urinary tract infection) Status: Acute Qualifiers: Urinary tract infection type: acute cystitis Hematuria presence: without hematuria Qualified Code(s): N30.00 - Acute cystitis without hematuria (4) Nausea & vomiting Code(s): R11.2 - NAUSEA WITH VOMITING, UNSPECIFIED Status: Resolved (5) Severe malnutrition Code(s): E43 - UNSPECIFIED SEVERE PROTEIN-CALORIE MALNUTRITION Status: Chronic - Plan no evidence of ileorectal stricture, has ileal pouch abd pain better with bentyl encourage po intake continue iv fluids, protonix, lyrica and lactulose prn dc plan when oral intake improves
[2019-05-29] MEDS: Acetaminophen 325 MG TAB PO PRN (19:59)
[2019-05-29] MEDS: Zolpidem Tartrate 5 MG TAB PO PRN (19:59)
[2019-05-30] MEDS: Dextrose 5 %-0.45 % NaCl 1,000 ML IV SCH ×2 (02:24→17:00)
[2019-05-30] MEDS: Dicyclomine 10 MG CAP PO PRN (04:14)
[2019-05-30] MEDS: Acetaminophen 325 MG TAB PO PRN (04:14)
[2019-05-30] MEDS ORDERED: Nitroglycerin 2% Ointment 1 INCH/1 GM Packet ONE (07:48)
[2019-05-30 08:16] LABS: Troponin I Less than 0.010 ng/mL (< 0.028)
[2019-05-30] MEDS: Pregabalin 75 MG CAP PO SCH (08:30)
[2019-05-30] MEDS: Sulfameth/Trimethoprim DS 800-160mg TAB PO SCH (08:31)
[2019-05-30 08:54] LABS: #Eosinphils 0.1 thou/uL (0.0-0.7); #Lymphocytes 1.4 thou/uL (1.20-3.40); #Monocytes 0.3 thou/uL (0.11-0.59); #Neutrophils 1.5 thou/uL (1.40-6.50); %Basophils 0.1 % (0.0-1.0); %Eosinophils 1.6 % (0.0-10.0); %Monocytes 9.5 % (0.0-10.0); %Neutrophils 44.9 % (42.0-75.0); Hemoglobin 12.3 g/dL (12.0-16.0); Mean Corpuscular HGB CONC 34.7 g/dL (32.0-36.0); Mean Corpuscular Hemoglobin 32.5 pg (27.0-31.0); Mean Corpuscular Volume 93.7 fL (78.0-98.0); Mean Platelet Volume 8.2 fL (7.4-10.4); Platelet Count 154 thou/uL (130-400); RBC Distribution Width 12.5 % (11.5-14.5); Red Blood Cell (RBC) Count 3.77 mill/uL (4.20-5.40); White Blood Cell (WBC) Count 3.3 thou/uL (4.8-10.8)
--- NOTE | 2019-05-30 08:57 | RAD ---
AP CHEST: HISTORY: Shortness of breath. FINDINGS: The lung deshpande are clear. The heart and mediastinum appear normal. The vasculature is normal. IMPRESSION: No acute findings. POS: [facility]
[2019-05-30 08:58] LABS: INR-International Normal Ratio 1.1; PTT 31.7 SEC (22.9-36.1); Prothrombin Time 14.2 SEC (12.0-14.7)
[2019-05-30 08:59] LABS: Anion Gap 15 mmol/L (10-20); BUN (Urea Nitrogen) 5 mg/dL (9.8-20.1); Calc. Creatinine Clearance 52 mL/min (70-130); Calcium 9.5 mg/dL (7.8-10.44); Carbon Dioxide 20 mmol/L (22-29); Chloride 109 mmol/L (98-107); Estimated GFR-MDRD 80; Glucose 101 mg/dL (70-105); Potassium 3.3 mmol/L (3.5-5.1); Sodium 141 mmol/L (136-145)
[2019-05-30] MEDS ORDERED: Aspirin 81 mg Enteric Coated Tablet PO SCH (10:30)
[2019-05-30 12:11] LABS: Troponin I Less than 0.010 ng/mL (< 0.028)
--- NOTE | 2019-05-30 12:24 | MRI ---
MRI BRAIN WITHOUT CONTRAST: HISTORY: Left upper extremity weakness. COMPARISON: 04/17/2019 FINDINGS: No restricted diffusion is seen. Changes of mild chronic small vessel ischemic disease are again not ed. No infarct, hemorrhage, midline shift, or abnormal extraaxial fluid collections are seen. The v entricular size is normal, and the basilar cisterns are patent. IMPRESSION: No evidence of acute intracranial process. POS: [facility]
--- NOTE | 2019-05-30 12:31 | PDOC.HOSPP ---
- Subjective Encounter Date: 05/30/19 Encounter Time: 08:30 Subjective: marc jeter was called this for chest pain, palp with hr of 120's later pt developed left ue weakness chest pain was worse with deep breathing has prior h/o panic attacks/anxiety issues - Objective Vital Signs & Weight: Vital Signs (12 hours) Pulse Resp Pulse Ox 05/30/19 08:00 95 05/30/19 07:45 93 24 H 98 05/30/19 07:25 98 Weight Admit Weight 88 lb Weight 87 lb 4.8 oz I&O: 05/29/19 05/30/19 05/31/19 06:59 06:59 06:59 Intake Total 1895 2524 350 Output Total 50 50 Balance 1845 2474 350 Result Diagrams: 05/30/19 08:37 05/30/19 08:37 ROS - Medication Medications: Active Medications Generic Name Dose Route Start Last Admin Trade Name Freq PRN Reason Stop Dose Admin Acetaminophen 650 mg 05/26/19 19:00 05/30/19 04:14 Tylenol PO 650 mg Q4H PRN Administration Headache/Fever/Mild Pain (1-3) Aspirin 81 mg 05/30/19 10:30 05/30/19 11:27 Ecotrin PO 05/30/19 13:00 81 mg NOW GEORGINA Administration Dicyclomine HCl 10 mg 05/28/19 17:32 05/30/19 04:14 Bentyl PO 10 mg QID PRN Administration abdominal pain Dextrose/Sodium Chloride 1,000 mls @ 75 mls/hr 05/26/19 19:15 05/30/19 02:24 D5 1/2 Ns IV 1,000 mls .[id number] GEORGINA Administration Lactulose 30 gm 05/26/19 19:03 05/27/19 08:11 Lactulose PO 30 gm QID PRN Administration Constipation Ondansetron HCl 4 mg 05/26/19 19:00 05/29/19 19:59 Zofran IVP 4 mg Q6H PRN Administration Nausea/Vomiting Pantoprazole Sodium 40 mg 05/26/19 21:00 05/29/19 19:59 Protonix PO 40 mg HS GEORGINA Administration Pregabalin 75 mg 05/26/19 21:00 05/30/19 08:30 Lyrica PO 75 mg BID GEORGINA Administration Sodium Chloride 10 ml 05/27/19 21:00 08/18/19 08:31 Flush - Normal Saline IVF Not Given Q12HR GEORGINA Trimethoprim/Sulfamethoxazole 1 tab 05/29/19 09:00 05/30/19 08:31 Bactrim Ds PO 1 tab BID GEORGINA Administration Zolpidem Tartrate 5 mg 05/27/19 09:11 05/29/19 19:59 Ambien PO 5 mg HSPRN PRN Administration Insomnia - Exam NAD, awake alert Eye: PERRL, anicteric sclera ENT: no oropharyngeal lesions, moist mucosa Neck: supple, no JVD Heart: RRR, no murmur Respiratory: no wheezes, no rales, no ronchi Gastrointestinal: soft, non-tender, normal bowel sounds Extremities: no cyanosis, no clubbing Neurological: CN's grossly intact, no focal deficits Psychiatric: A&O x 3 Hosp A/P (1) Abdominal pain Code(s): R10.9 - UNSPECIFIED ABDOMINAL PAIN Status: Acute Qualifiers: Abdominal location: generalized Qualified Code(s): R10.84 - Generalized abdominal pain (2) h/o familial adenomatous polyposis syndr Status: Chronic (3) UTI (urinary tract infection) Status: Acute Qualifiers: Urinary tract infection type: acute cystitis Hematuria presence: without hematuria Qualified Code(s): N30.00 - Acute cystitis without hematuria (4) Nausea & vomiting Code(s): R11.2 - NAUSEA WITH VOMITING, UNSPECIFIED Status: Resolved (5) Severe malnutrition Code(s): E43 - UNSPECIFIED SEVERE PROTEIN-CALORIE MALNUTRITION Status: Chronic (6) Chest pain Code(s): R07.9 - CHEST PAIN, UNSPECIFIED Status: Resolved Qualifiers: Chest pain type: chest pain on breathing Qualified Code(s): R07.1 - Chest pain on breathing; R07.81 - Pleurodynia - Plan trop x2 is -ve, MRI is -ve for ac cva had panic attack this am which has resolved now full liq diet, ensure tid d/w Dr. Cisneros, pt will f/u with will dc home this afternoon no evidence of ileorectal stricture, has ileal pouch abd pain better with bentyl encourage po intake continue protonix, lyrica and lactulose prn
--- NOTE | 2019-05-30 14:51 | PRG ---
DATE OF SERVICE: 05/30/2019 SUBJECTIVE: Ms. Polo had an episode of shortness of breath and anxiety this morning. She was evaluated by the hospitalist and EKG was done and chest x-ray, which were negative. She then reported some possible weakness on one side, questionably and she did have an MRI of her brain that was negative. She complains of some continued upper abdominal pain with any solid food, but she appears to be tolerating the Ensures pretty well at this point. OBJECTIVE: VITAL SIGNS: Temperature is 98.1, pulse 78, blood pressure 116/68. GENERAL: She is in no acute distress. Alert and oriented x3. LUNGS: Clear to auscultation bilaterally. HEART: Regular rate and rhythm without murmur. ABDOMEN: Soft. Mild tenderness in the upper abdomen without guarding. Bowel sounds are present. EXTREMITIES: No lower extremity edema. LABORATORY DATA: Creatinine 0.75. IMPRESSION: 1. Chronic abdominal pain, which is more postprandial with solid foods in the upper abdomen. This appears to be more of a functional pain. She did have improvement temporarily with dicyclomine. No structural lesion has been identified by endoscopy. She has had prior colectomy, but there was no true stricture at the ileorectal anastomosis. 2. History of familial adenomatous polyposis syndrome. 3. History of systemic lupus erythematous ptosis. Consideration of serosal involvement can be given if the pain continues and we find no improvement with symptomatic care. RECOMMENDATIONS: 1. Smoking cessation. 2. NSAID avoidance. 3. Dicyclomine as needed. 4. Continue to push a full liquid diet and liquid supplements. She can get the nutrition that she needs from these supplements. 5. Continue pantoprazole daily. 6. When she is tolerating adequate oral intake, she can be discharged with outpatient followup with Dr. Suarez. Job ID: [id number]
--- NOTE | 2019-05-30 15:32 | DIS ---
DATE OF ADMISSION: 05/26/2019 DATE OF DISCHARGE: 05/30/2019 DISCHARGE DISPOSITION: Home. PRIMARY DISCHARGE DIAGNOSES: Chronic abdominal pain, likely functional; urinary tract infection; nausea and vomiting, resolved; severe malnutrition due to poor oral intake; history of familial adenomatous polyposis syndrome with subtotal colectomy in the past. PROCEDURES DONE DURING HOSPITALIZATION: The patient had a flexible sigmoidoscopy done on 05/28/[address] Sanket Cisneros. This showed ileoanal anastomosis, ileal pouch, and small opening within the ileal pouch that was dilated to 10 mm with a balloon; however, this turned out to be just a tunnel through the other side of the ileal pouch at the suture point. There was no evidence of obstruction or stricture. CT abdomen and pelvis without contrast post sigmoidoscopy done showed no evidence of extravasation of contrast to suggest a leak. There was no free fluid, free intraperitoneal gas or collection seen in the abdomen or pelvis. Initial abdomen and pelvis CAT scan done on 05/26/2019 on admission showed no evidence of acute process. There was moderate colonic fecal retention at the region of enterorectal anastomosis. MRI of brain showed no acute intracranial process. Chest x-ray done showed no acute findings. Urine culture grew E coli sensitive to Bactrim. Discharge BUN and creatinine 5 and 0.7. Troponin x2 negative. Lipase was 29 on admission. H and H 12 and 35, platelet count 154, and MCV is 93 with white count of 3.3. DISCHARGE MEDICATIONS: 1. Omeprazole 40 mg p.o. at bedtime. 2. Lyrica 75 mg twice daily. 3. Ranitidine 300 mg p.o. daily. 4. Albuterol inhaler q.6 hourly p.r.n. 5. Vitamin C 500 mg p.o. daily. 6. Bentyl 10 mg p.o. 4 times daily p.r.n. for abdominal pain. 7. Folic acid 1 mg p.o. daily. 8. Vitamin B12 1000 mcg p.o. daily. 9. Multivitamin one tablet once daily. 10. Bactrim 1 tablet twice daily for another 3 days for UTI. 11. MiraLax 17 g daily. ALLERGIES: OPIOIDS. INPATIENT CONSULT: Dr. Sanket Cisneros for Gastroenterology. DISCHARGE PLAN: The patient to follow up with Dr. Suarez in 2 weeks and primary care physician in 1 week. BRIEF COURSE DURING HOSPITALIZATION: The patient initially came in with complaints of abdominal pain, nausea, vomiting, and failure to thrive. She has been steadily losing weight. She had known history of familial adenomatous polyposis coli and had a subtotal colectomy done in the past with ileorectal anastomosis. Ms. Christ Limon has had a flexible sigmoidoscopy done to rule out ileorectal stricture. This was ruled out. She was found to have had an ileal pouch. The patient has had two CAT scans done, which have not revealed any acute pathology except for stool. She has been passing stool during her stay here. The patient's abdominal pain likely is chronic and mostly functional. She also carries a history of lupus and will have followups with Dr. Suarez in 2 weeks to see if her abdominal pain is resolved or is there a component of serositis involved. Her abdominal pain gets completely resolved with Bentyl and a prescription for the same has been given. On the day of discharge, the patient had an episode of panic attack with chest pain and left upper extremity weakness. Two sets of troponin were done, which were negative. EKG did not reveal any acute ST-T wave changes. MRI for the brain done showed no acute CVA. She is tolerating full-liquid diet. She is counseled to drink at least three cans of Ensure along with heart healthy liquid diet that she can manage. She is otherwise hemodynamically stable and has been cleared by Gastroenterology for discharge as well. Prior to discharge, she was ambulating in the hallway. She needs to follow up with Dr. Suarez in 10 days for further followup posthospitalization. Please see a [id number] documentation for the day of discharge on [email or web address]. Job ID: [id number] MTDD
[2019-05-30 17:47] VITALS: BP 114/63; TEMP 98
--- NOTE | 2019-06-01 22:44 | EKG ---
Test Reason : CP Blood Pressure : / mmHG Vent. Rate : 081 BPM Atrial Rate : 080 BPM P-R Int : 000 ms QRS Dur : 076 ms QT Int : 374 ms P-R-T Axes : 000 065 067 degrees QTc Int : 434 ms Accelerated Junctional rhythm Abnormal ECG No previous ECGs available Confirmed by Bubba ANDERSON ([id number]) on 06/01/2019 10:44:41 PM Referred By: THOMAS Confirmed By:Bubba ANDERSON
== END 2019-05-30 18:34 | disposition home or self-care (01) | DRG 391 ==
LOC: ERS 13:15 → T4-B 16:22
PROVIDERS: ADMIT Family Medicine; ATTEND Family Medicine
PROC: 0D7N8ZZ Dilation of Sigmoid Colon, Via Natural or Artificial Opening Endoscopic (ICD-10-PCS; principal; 2019-05-28)
DX: R10.84 Generalized abdominal pain (principal); E43 Unspecified severe protein-calorie malnutrition; N39.0 Urinary tract infection, site not specified; Z68.1 Body mass index [BMI] 19.9 or less, adult; K56.41 Fecal impaction; K63.89 Other specified diseases of intestine; F17.210 Nicotine dependence, cigarettes, uncomplicated; G62.9 Polyneuropathy, unspecified; M32.9 Systemic lupus erythematosus, unspecified; G89.29 Other chronic pain; Z98.890 Other specified postprocedural states; Z90.49 Acquired absence of other specified parts of digestive tract; Z87.442 Personal history of urinary calculi; K21.9 Gastro-esophageal reflux disease without esophagitis; R07.81 Pleurodynia
CPT/HCPCS: 36415; 70551; 71045; 74019; 74176; 74177; 80048; 80053; 81003; 83605; 83690; 84484; 85025; 85379; 85610; 85730; 87077; 87086; 87186; 93005; 93010; 94640; 96360; C1726; J0696; J2405; J3490; J7620; Q9966; Q9967

== ENCOUNTER 2019-06-10 14:41 | Emergency (ER) | payer MEDICARE ==
[2019-06-10] MEDS ORDERED: Ondansetron PF 4 MG/2 ML Vial ONE (15:23)
[2019-06-10] MEDS ORDERED: ISOVUE-370 76%-LOCM 1 ML ONE (15:24)
[2019-06-10 15:57] LABS: #Lymphocytes 1.7 thou/uL (1.20-3.40); #Monocytes 0.4 thou/uL (0.11-0.59); #Neutrophils 4.2 thou/uL (1.40-6.50); %Basophils 0.3 % (0.0-1.0); %Eosinophils 0.3 % (0.0-10.0); %Lymphocytes 26.8 % (21.0-51.0); %Monocytes 6.8 % (0.0-10.0); %Neutrophils 65.7 % (42.0-75.0); Hemoglobin 12.6 g/dL (12.0-16.0); Mean Corpuscular HGB CONC 35.3 g/dL (32.0-36.0); Mean Corpuscular Volume 93.3 fL (78.0-98.0); Mean Platelet Volume 7.9 fL (7.4-10.4); Platelet Count 194 thou/uL (130-400); RBC Distribution Width 12.3 % (11.5-14.5); Red Blood Cell (RBC) Count 3.82 mill/uL (4.20-5.40); White Blood Cell (WBC) Count 6.5 thou/uL (4.8-10.8)
--- NOTE | 2019-06-10 16:01 | CT ---
CT ABDOMEN AND PELVIS WITH CONTRAST: 06/10/19 INDICATION: Back pain, left lower extremity pain. FINDINGS: There is no evidence of consolidation or effusion at the lower chest. Prior cholecystectomy. Heteroge neity of the liver and spleen due to phase of enhancement. No hydronephrosis of either kidney or evid ence of adrenal mass. Mild vascular calcification. Suture material seen at distal colon, within the p collin. Patient is status post partial colectomy. No compression fracture of the lumbar spine. Disc bu lges of the lumbar spine are present at multiple levels, incompletely evaluated. IMPRESSION: No acute process identified. POS: C
[2019-06-10 16:13] LABS: Bilirubin Negative (Negative); Blood, Urine Trace (Negative); Glucose, Urine (Dipstick) Negative (Negative); Leukocyte Negative (Negative); Nitrite Negative (Negative); Protein, Urine (Dipstick) Negative (Neg-Trace); Urobilinogen 0.2 mg/dL (Less than 2)
[2019-06-10 16:14] LABS: ALT (SGPT) 21 U/L (8-55); AST (SGOT) 23 U/L (5-34); Alkaline Phosphatase 57 U/L (40-150); Anion Gap 13 mmol/L (10-20); BUN (Urea Nitrogen) 10 mg/dL (9.8-20.1); Bilirubin, Total 0.4 mg/dL (0.2-1.2); Calc. Creatinine Clearance 0 mL/min (70-130); Carbon Dioxide 25 mmol/L (22-29); Chloride 100 mmol/L (98-107); Estimated GFR-MDRD 77; Globulin 2.1 g/dL (2.4-3.5); Glucose 98 mg/dL (70-105); Lipase 19 U/L (8-78); Potassium 3.9 mmol/L (3.5-5.1); Protein, Total 6.1 g/dL (6.0-8.3); Sodium 134 mmol/L (136-145)
[2019-06-10 16:33] LABS: Clarity Clear (Clear)
[2019-06-10 16:34] LABS: Bacteria/HPF None Seen HPF (None Seen); RBC/HPF 0-3 HPF (0-3); Squamous Epithelial None Seen HPF (0-3); WBC/HPF None Seen HPF (0-3)
== END 2019-06-10 17:27 | disposition home or self-care (01) ==
LOC: ERS 14:41
DX: R10.10 Upper abdominal pain, unspecified (principal); R11.2 Nausea with vomiting, unspecified; R10.816 Epigastric abdominal tenderness; F17.210 Nicotine dependence, cigarettes, uncomplicated
CPT/HCPCS: 36415; 74177; 80053; 81003; 81015; 83690; 84484; 85025; 93005; 96361; 96372; 96374; J0500; J2405; Q9966

== ENCOUNTER 2019-06-23 13:41 | Observation (INO) | payer MEDICARE ==
[2019-06-23 14:01] LABS: Bilirubin Negative (Negative); Blood, Urine Negative (Negative); Clarity Clear (Clear); Glucose, Urine (Dipstick) Normal (Negative); Leukocyte Negative Leu/uL (Negative); Nitrite Negative (Negative); Protein, Urine (Dipstick) Negative (Neg-Trace); Urobilinogen Normal mg/dL (Less than 2)
[2019-06-23 14:51] LABS: #Lymphocytes 1.9 thou/uL (1.20-3.40); #Monocytes 0.4 thou/uL (0.11-0.59); #Neutrophils 2.4 thou/uL (1.40-6.50); %Basophils 0.3 % (0.0-1.0); %Eosinophils 0.5 % (0.0-10.0); %Lymphocytes 40.6 % (21.0-51.0); %Monocytes 8.6 % (0.0-10.0); %Neutrophils 50.1 % (42.0-75.0); Mean Corpuscular HGB CONC 34.9 g/dL (32.0-36.0); Mean Corpuscular Hemoglobin 32.5 pg (27.0-31.0); Mean Corpuscular Volume 92.9 fL (78.0-98.0); Mean Platelet Volume 8.5 fL (7.4-10.4); Platelet Count 185 thou/uL (130-400); RBC Distribution Width 12.4 % (11.5-14.5); White Blood Cell (WBC) Count 4.8 thou/uL (4.8-10.8)
[2019-06-23] MEDS ORDERED: Ondansetron PF 4 MG/2 ML Vial ONE (15:11)
--- NOTE | 2019-06-23 15:18 | RAD ---
2 VIEW ABDOMEN: Date: 06/23/19 INDICATION: Abdominal pain. Comparison made to abdominal film of 05/27/19. CT abdomen and pelvis dated 06/10/19. FINDINGS: Scattered stool in the colon. There is scattered small bowel gas which appears nonspecific. No eviden ce of small bowel dilatation. A gas-filled loop in the pelvis appears to represent dilated colon in t he pelvis, which was also noted on the prior CT. The patient is post partial colectomy. No free air i dentified under the hemidiaphragm. IMPRESSION: Nonspecific bowel gas pattern. POS: OFF
[2019-06-23 15:21] LABS: ALT (SGPT) 17 U/L (8-55); AST (SGOT) 23 U/L (5-34); Albumin 4.7 g/dL (3.5-5.0); Alkaline Phosphatase 64 U/L (40-150); Anion Gap 12 mmol/L (10-20); BUN (Urea Nitrogen) 9 mg/dL (9.8-20.1); Bilirubin, Total 0.5 mg/dL (0.2-1.2); Calc. Creatinine Clearance 0 mL/min (70-130); Calcium 9.9 mg/dL (7.8-10.44); Carbon Dioxide 25 mmol/L (22-29); Chloride 105 mmol/L (98-107); Estimated GFR-MDRD 75; Globulin 2.5 g/dL (2.4-3.5); Glucose 87 mg/dL (70-105); Potassium 3.7 mmol/L (3.5-5.1); Protein, Total 7.2 g/dL (6.0-8.3); Sodium 138 mmol/L (136-145)
[2019-06-23 16:21] LABS: Prothrombin Time 12.9 SEC (12.0-14.7)
[2019-06-23 17:00] LABS: Amphetamine Not Detected (NotDetected); Barbiturates Screen Not Detected (NotDetected); Benzodiazepine Screen Not Detected (NotDetected); Cocaine Metabolite Screen Not Detected (NotDetected); Medtox Control Line Valid? VALID (VALID); Medtox Reader # READER 4; Methadone Not Detected (NotDetected); Methamphetamine Not Detected (NotDetected); Opiate Screen Not Detected (NotDetected); Oxycodone Screen Not Detected (NotDetected); Phencyclidine (PCP) Not Detected (NotDetected); THC/Cannabinoid Screen Detected (NotDetected); Tricyclic Screen Not Detected (NotDetected)
[2019-06-23] MEDS ORDERED: Ondansetron ODT 4 MG TAB SL PRN (18:19)
[2019-06-23] MEDS ORDERED: Sodium Chloride 0.9% 1,000 ML IV SCH (18:19)
[2019-06-23] MEDS ORDERED: Ondansetron PF 4 MG/2 ML Vial IVP PRN (18:19)
[2019-06-23 18:25] VITALS: BMI 15.3
[2019-06-23] MEDS ORDERED: Acetaminophen 325 MG TAB PO PRN (18:30)
[2019-06-23] MEDS ORDERED: Dicyclomine 10 MG/5 ML UDCUP PO PRN (18:36)
[2019-06-23] MEDS ORDERED: Sodium Chloride 0.9% (PF) 10 ML VIAL FS PRN (19:02)
[2019-06-23] MEDS: Sodium Chloride 0.9% 1,000 ML IV SCH (19:38)
[2019-06-23] MEDS: Pregabalin 75 MG CAP PO SCH (20:27)
[2019-06-23] MEDS: Pantoprazole 40 MG VIAL IVP SCH (20:28)
[2019-06-23 21:57] LABS: Hemoglobin 11.4 g/dL (12.0-16.0)
--- NOTE | 2019-06-24 01:24 | HP ---
PRIMARY CARE PHYSICIAN: Kennedi Campos PA-C HISTORY OF PRESENT ILLNESS: Ms. Julio is a 59-year-old female with evaluation in the emergency room for abdominal pain. Reports that she has been dealing with this for quite some time. Saw Dr. Suarez yesterday in the office, but today when she woke up, she had increased cramping with vomiting x2 and also reports she noticed some melena today when she went to sit down to urinate. The patient reports having several episodes of melena today at least 3 or 4 times and she reports that the feeling to have a bowel movement is no longer there, which she reports is new. PAST MEDICAL HISTORY: Includes FAP and lupus and that her large intestine has been removed and had an ileoanal anastomosis and ileal pouch, a small opening within the ileal pouch that was dilated to 2 mm on the last visit, which was 05/26/2019. The patient also has severe protein calorie malnutrition. The patient states that she has not been able to have a bowel movement on her own without the use of enemas, Magnesium citrate, Colace, and she reports that before today the last bowel movement she is able to have and the last use of any laxatives was on Friday. The patient today had some nausea, vomiting, increase of reflux symptoms, and then the diarrhea today with the melena that she noted, which precipitated her visit to the emergency room. She was seen here on 05/26/[address] Cisneros did a flexible sigmoidoscopy on the , which showed the ileoanal anastomosis in the ileal pouch and at that point, it was dilated to 10 mm. Per patient, when she saw Dr. Suarez yesterday, he was concerned that part of her small intestine was ischemic and this might account for some of the symptoms that she continues to have. Dr. Suarez was contacted from the ER today and he asked for the patient to be admitted and he would follow up and she was admitted to the observation unit. ALLERGIES: MORPHINE. MEDICATIONS: 1. Omeprazole 40 mg p.o. at bedtime. 2. Lyrica 75 mg p.o. twice a day. 3. Zantac 300 mg p.o. daily. 4. Albuterol inhaler q.6 hours p.r.n. 5. Vitamin C p.o. daily. 6. Bentyl 10 mg p.o. q.i.d. p.r.n. as needed for abdominal pain. 7. Folic acid 1 mg p.o. daily. 8. Vitamin B12 1000 mcg p.o. daily. 9. Multivitamin once a day. 10. MiraLAX 17 g daily. 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 PAST SURGICAL HISTORY: Neck surgery, right wrist surgery, appendectomy, cholecystectomy, total colectomy. 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 Smokes tobacco 1 pack per day. Lives with her mom and her brother. FAMILY HISTORY: Significant for mom with melanoma. REVIEW OF SYSTEMS: Positive for nausea, vomiting, abdominal pain, melena. Reports unable to take more than 2 or 3 bites of anything without vomiting. Reports low-grade fever over the last week. All remaining review of systems are reviewed and are negative unless mentioned in the HPI. PHYSICAL EXAMINATION: VITAL SIGNS: Blood pressure 105/60, pulse is 63, respiratory rate is 16, PO2 sats are 98% on room air. CONSTITUTIONAL: The patient appears in no distress. She appears pain free. She is alert and oriented to person, place, and time. HEENT: Head is atraumatic and normocephalic. Eyes; eyelids are normal to inspection. Pupils are equal, round, and reactive to light ENT; mucous membranes are moist. Mouth exam is normal. NECK: Normal range of motion. Trachea is midline. RESPIRATORY/CHEST: Breath sounds are clear. No findings of any respiratory distress. CARDIOVASCULAR: Regular rate and rhythm. Heart sounds are normal. ABDOMEN: Mild tenderness to the left lower quadrant. There is some guarding present. Bowel sounds are heard. BACK: Normal range of motion. No tenderness. EXTREMITIES: Upper extremity inspection is normal. Normal range of motion. Motor strength is normal. Radial pulses are normal. Lower extremity, normal range of motion. Motor strength is normal. Pedal pulses are normal. NEUROLOGIC: The patient is oriented to person, place, and time. Speech is normal. SKIN: Warm, dry, normal in color. PSYCHIATRIC: Has a normal affect. DIAGNOSTIC STUDIES: EKG in the emergency room shows junctional rhythm, beats per minute 72, ST segments, T-waves, axis is normal. Radiology interpretation, she had a pelvic x-ray, which showed scattered stool in the colon. Scattered bowel gas pattern, which appears nonspecific. No evidence of any small bowel dilatation. There is a gas-filled loop in the pelvis, appears to represent dilated colon in the pelvis, which is also noted on the prior CT. The patient is post colectomy. No free air is identified under the hemidiaphragm. Chemistry unremarkable. Hematology also unremarkable. Hemoglobin is 14, hematocrit is 39.9, and platelet count is 185. PT 12.9, INR 1. Urine is negative. Toxicology positive for cannabinoids. Guaiac stool is negative for occult blood. ASSESSMENT AND PLAN: 1. The patient reports that the nausea has improved with Zofran that she received in the emergency room as well as the Bentyl. Dr. Suarez was contacted. He will be consulted to follow up with the patient in the morning. IV fluid hydration NS 100 mL per hour. We will keep her n.p.o. for now, but will increase to her normal liquid diet as tolerated once seen by GI. We will start her on Protonix b.i.d. Continue her Lyrica. Serial H and H. 2. Deep venous thrombosis prophylaxis. The patient was ambulatory and we will use SCDs and gastrointestinal prophylaxis with the Protonix. Case discussed with Dr. Sawant, who agrees to plan. Job ID: [id number]
[2019-06-24] MEDS: Sodium Chloride 0.9% 1,000 ML IV SCH (04:59)
[2019-06-24 05:10] LABS: #Basophils 0.1 thou/uL (0.0-0.2); #Eosinphils 0.1 thou/uL (0.0-0.7); #Lymphocytes 2.1 thou/uL (1.20-3.40); #Monocytes 0.4 thou/uL (0.11-0.59); #Neutrophils 1.6 thou/uL (1.40-6.50); %Basophils 1.8 % (0.0-1.0); %Eosinophils 1.6 % (0.0-10.0); %Lymphocytes 49.6 % (21.0-51.0); %Monocytes 9.3 % (0.0-10.0); %Neutrophils 37.7 % (42.0-75.0); Mean Corpuscular HGB CONC 33.9 g/dL (32.0-36.0); Mean Corpuscular Hemoglobin 31.9 pg (27.0-31.0); Mean Corpuscular Volume 94.3 fL (78.0-98.0); Mean Platelet Volume 8.4 fL (7.4-10.4); Platelet Count 155 thou/uL (130-400); RBC Distribution Width 12.5 % (11.5-14.5); Red Blood Cell (RBC) Count 3.75 mill/uL (4.20-5.40); White Blood Cell (WBC) Count 4.2 thou/uL (4.8-10.8)
[2019-06-24 05:29] LABS: ALT (SGPT) 15 U/L (8-55); AST (SGOT) 26 U/L (5-34); Albumin 3.7 g/dL (3.5-5.0); Alkaline Phosphatase 53 U/L (40-150); Anion Gap 9 mmol/L (10-20); BUN (Urea Nitrogen) 8 mg/dL (9.8-20.1); Bilirubin, Total 0.5 mg/dL (0.2-1.2); Calc. Creatinine Clearance 52 mL/min (70-130); Calcium 8.6 mg/dL (7.8-10.44); Carbon Dioxide 26 mmol/L (22-29); Chloride 110 mmol/L (98-107); Estimated GFR-MDRD 78; Globulin 1.9 g/dL (2.4-3.5); Glucose 82 mg/dL (70-105); Potassium 3.9 mmol/L (3.5-5.1); Protein, Total 5.6 g/dL (6.0-8.3); Sodium 141 mmol/L (136-145)
[2019-06-24] MEDS ORDERED: Ondansetron ODT 4 MG TAB PO PRN (07:13)
[2019-06-24] MEDS ORDERED: Ondansetron PF 4 MG/2 ML Vial IVP PRN (07:13)
[2019-06-24] MEDS: Pregabalin 75 MG CAP PO SCH (08:31)
[2019-06-24] MEDS: Pantoprazole 40 MG VIAL IVP SCH (08:31)
--- NOTE | 2019-06-24 11:35 | RAD ---
XR Small Bowel STANDARD HISTORY: Abnormal pain and constipation history of partial colectomy. COMPARISON: CT examination of 06/10/2019. FINDINGS: Gastrografin was used for this examination. These small bowel transit time was approximatel y 1 hour. Surgical chain type sutures are seen within the pelvis. There is a small remnant of colon seen. No obstruction. Small bowel folds are normal in caliber. The anastomosis between the colon and small bowel is obscured by overlapping bowel loops. IMPRESSION: No evidence of obstruction. Small bowel transit time of 1 hour.
[2019-06-24 12:05] VITALS: BP 163/85; TEMP 98.9
[2019-06-24] MEDS ORDERED: MD-Gastroview 120 ML BOT ONE (12:40)
--- NOTE | 2019-06-24 18:28 | PRG ---
DATE OF SERVICE: 06/24/2019 REASON FOR CONSULTATION: Nausea, vomiting, and abdominal pain. SUBJECTIVE: Overnight, per the patient and per the nursing staff, she had repeated episodes of nausea and vomiting with nonbloody emesis; however, that has improved significantly with the administration of Zofran during this admission. She also continues to have midepigastric/periumbilical abdominal pain, but that is also improving when compared to previous. This morning, she did undergo a small bowel follow through with administration of oral contrast, and with the ingestion of the oral contrast, it resulted in multiple watery bowel movements, and no significant increase in her pain. She also denies any further episodes of the dark black stools that she had endorsed both in clinic and on admission to the ER. Otherwise, she denies any fevers, chills, hematemesis, hematochezia, dysphagia, or odynophagia. OBJECTIVE: VITAL SIGNS: Temperature 98.1, pulse 64, blood pressure 163/85, respiratory rate 16, saturating 100% on room air. GENERAL: The patient was lying in bed, in no acute distress. Alert and oriented x4. CARDIOVASCULAR: Regular rate and rhythm. RESPIRATORY: Clear to auscultation bilaterally. ABDOMEN: Normoactive bowel sounds. Soft and nondistended. Tenderness to palpation in the midepigastric and periumbilical regions. EXTREMITIES: No cyanosis, clubbing, or edema. LABORATORY DATA: CBC with a white blood cell count of 4.2, hemoglobin 12, hematocrit 35.4, platelets 155. Chemistry; sodium of 141, potassium 3.9, chloride 110, CO2 of 26, BUN 8, creatinine 0.76, glucose 82, AST 26, ALT 15, alkaline phosphatase 53, total bilirubin 0.5, lipase 19. IMAGING DATA: CT of the abdomen and pelvis was obtained on June 10, 2019, which showed no evidence of consolidation or effusion in the lower chest. Surgical change consistent with cholecystectomy was noted. Suture material was seen at the distal colon within the pelvis indicative of partial colectomy. There was no mention of obstruction or transition point mentioned during this examination. A KUB was obtained on June 23, 2019, which showed scattered stool seen within the colon as well as a nonspecific bowel gas pattern. There was no evidence of small bowel dilatation, although a gas-filled loop in the pelvis appeared to represent dilated colon within the pelvis. There was no evidence of obstruction or free air underneath the diaphragm. Small bowel follow through obtained on June 24, 2019, showed small bowel transit time of approximately 1 hour with surgical chain-type sutures seen within the pelvis consistent with ileocolectomy with a small remnant of colon seen. There was no evidence of obstruction. The anastomosis between the colon and the small bowel was obscured by overlapping bowel loops. ASSESSMENT AND PLAN: The patient is a 59-year-old female with past medical history of familial adenomatous polyposis syndrome, status post subtotal colectomy with colonic remnant and ileoanal pouch anastomosis, gastroesophageal reflux disease, osteoarthritis, peptic ulcer disease, lupus, and marijuana abuse, presenting with nausea, vomiting, and dark black stools concerning for melena. Nausea/vomiting/abdominal pain: The patient is presenting with a chronic history of nausea and vomiting in addition to midepigastric/periumbilical abdominal pain that has been present for several months to this time. She has undergone both esophagogastroduodenoscopy and colonoscopy on December 15, 2018, which did not show any overt pathology within the upper GI tract as well as a colonoscopy that showed stool retained within the rectum and a tight anastomosis between the ileum and rectum. A flexible sigmoidoscopy was further performed on May 28, 2019, which showed that the ileocolonic anastomosis was widely patent and easily traversed with the endoscope. During her previous hospitalization, there was some question about possible anastomotic stricture contributing to retained stool and dilation of the proximal small bowel, but that has not been evident on recent imaging including the small bowel follow through obtained earlier today showing complete movement of contrast from the small bowel rapidly into the colon/rectum. However, she does have an extensive history of marijuana abuse and has been counseled on multiple occasions about cessation and further use contributing to cannabinoid hyperemesis syndrome. During her most recent clinic visit, she denied any additional use, but drug screen during this admission was positive for cannabis. Upon speaking with the patient today, she states that she has recently used it, but it has "not been on a regular basis". At this point, the increased nausea, vomiting, and abdominal pain could very well be to her recurrence of a cannabinoid hyperemesis syndrome, in which case the mainstay of therapy would be marijuana cessation. She also does have a recent history of constipation with inability to have any bowel movements for 1 week prior to admission, but as evidenced by the small bowel follow through today, there was no evidence of obstruction, and the contrast flowed through without difficulty making this a much lesser diagnosis. Recommendations: 1. Strongly encourage the patient against marijuana use as it can contribute to nausea, vomiting, and continued abdominal pain. 2. Would continue with antiemetic medications as you are doing, but be mindful of constipation with increased Zofran use. 3. Pain control per primary team. Melena/black stools: The patient is presenting with a recent history of increased nausea and vomiting as well as the appearance of black semi-solid to liquid stools. She was ultimately seen in the GI Clinic on June 22, for this reason with the CBC at that time showing no derangement from her baseline H and H. However, she continued to have these black stools concerning for active gastrointestinal bleeding and was subsequently advised to go to the ER for further evaluation. While in the ER, there was again no derangement in her H and H consistent with active gastrointestinal bleeding. At this time, the appearance of these black stools could be due to her increased nausea and vomiting with esophagitis contributing to minimal bleeding generating a black stool, but not necessarily enough to generate a significant drop in her H and H. Given her recent negative esophagogastroduodenoscopy and colonoscopy/flexible sigmoidoscopy, the likelihood of either upper or lower gastrointestinal tract anomaly is highly unlikely. Recommendations: 1. Would continue to trend her H and H and transfuse as necessary to maintain an H and H of 7/21. 2. Continue to monitor clinically for signs of active gastrointestinal bleeding. 3. Further endoscopic intervention is not indicated at this time. 4. Proceed with aggressive antiemetic control as above in addition to PPI use. With the improvement in the patient's abdominal pain, ability to tolerate some p.o., and now having liquid bowel movements, her current clinical situation is stabilizing. We will sign off at this time with the patient to follow up in the GI Clinic within the next 2 to 3 weeks. Job ID: [id number]
--- NOTE | 2019-06-24 19:33 | DIS ---
DATE OF ADMISSION: 06/23/2019 DATE OF DISCHARGE: 06/24/2019 DISCHARGE DISPOSITION: Home. FOLLOWUP: 1. Follow up with primary care physician, Kennedi Campos in 1 week. 2. Follow up with Gastroenterology, Dr. Suarez as scheduled. ALLERGIES: THE PATIENT IS ALLERGIC TO OPIOIDS. DISCHARGE MEDICATIONS: Same as admission medication. The patient was seen and examined on the day of discharge. Denies any new complaints. The patient is tolerating liquid consistency. BRIEF HOSPITAL COURSE: The patient is a 59-year-old female with colectomy in the past, presented to the emergency room with abdominal discomfort along with nausea and vomiting. She also had a small amount of dark stool. Please refer to the history and physical for further details. The patient was admitted to the hospital with a diagnosis of nausea, vomiting along with abdominal discomfort of unclear etiology. Urine drug screen was positive for cannabinoid. Her creatinine remained normal at 0.79. She was started on IV fluids. In December 2018, she underwent EGD and colonoscopy, which were negative for acute findings except for constipation. She also had flexible sigmoidoscopy last month. She was evaluated by Gastroenterology, Dr. Suarez. Her hemoglobin stayed stable. She had a small bowel x-ray that showed small bowel transit time of 1 hour. The patient has been cleared by Gastroenterology for discharge. She was extensively counseled to discontinue cannabis abuse. She appears stable for discharge. She was advised to start [id number] proton pump inhibitor. FINAL DIAGNOSES: 1. Nausea, vomiting, and abdominal discomfort of unclear etiology, improved. 2. Melena/black stool of unclear etiology. Her H and H were negative. Stool for occult blood remained negative. 3. Gastroesophageal reflux disease. 4. Peptic ulcer disease. 5. Systemic lupus erythematosus. 6. Cannabis abuse. 7. Familial adenomatous polyposis syndrome, status post subtotal colectomy with colonic remnant and ileoanal pouch anastomosis. 8. Chronic constipation. Plan of care was discussed with the patient in detail, she stated understanding. Job ID: [id number]
--- NOTE | 2019-06-26 14:56 | EKG ---
Test Reason : Blood Pressure : / mmHG Vent. Rate : 072 BPM Atrial Rate : 072 BPM P-R Int : 000 ms QRS Dur : 074 ms QT Int : 390 ms P-R-T Axes : 000 065 066 degrees QTc Int : 427 ms Accelerated Junctional rhythm Abnormal ECG Confirmed by ANA Garces, JULIENNE ([id number]), market editor NINO MARY ([id number]) on 06/26/2019 2:56:11 PM Referred By: MD PEREZ Confirmed By:JULIENNE PEREZ M.D.
== END 2019-06-24 16:56 | disposition home or self-care (01) ==
LOC: ERS 13:41 → 2SW 16:15
PROVIDERS: ADMIT Internal Medicine; ATTEND Internal Medicine
DX: K92.1 Melena (principal); R11.2 Nausea with vomiting, unspecified; R10.13 Epigastric pain; R10.33 Periumbilical pain; K21.9 Gastro-esophageal reflux disease without esophagitis; M32.9 Systemic lupus erythematosus, unspecified; F12.10 Cannabis abuse, uncomplicated; G62.9 Polyneuropathy, unspecified; F17.210 Nicotine dependence, cigarettes, uncomplicated; M19.90 Unspecified osteoarthritis, unspecified site; K59.09 Other constipation; E43 Unspecified severe protein-calorie malnutrition; Z68.1 Body mass index [BMI] 19.9 or less, adult; Z86.010 Personal history of colon polyps; Z79.899 Other long term (current) drug therapy; Z88.5 Allergy status to narcotic agent; Z90.49 Acquired absence of other specified parts of digestive tract
CPT/HCPCS: 74019; 74250; 80053 ×2; 80306; 81003; 82274; 83605; 85014; 85018; 85025 ×2; 85610; 86850; 86900; 86901; 93005; 96361 ×3; 96372; 96374; 96375; 96376; 97139; 99285; G0378 ×3; 36415; C9113; J0500; J2405; Q9963

== ENCOUNTER 2021-12-02 16:32 | Emergency (ER) | payer MEDICARE, MEDICAID ==
[2021-12-02] MEDS ORDERED: Metoclopramide HCl 10 MG/2 ML VIAL ONE (17:59)
[2021-12-02] MEDS ORDERED: diphenhydrAMINE 50 MG/ML VIAL ONE (17:59)
[2021-12-02 18:05] LABS: Bilirubin Negative (Negative); Blood, Urine Negative (Negative); Clarity Clear (Clear); Glucose, Urine (Dipstick) Normal (Negative); Ketone, Urine Negative (Negative); Leukocyte Negative Leu/uL (Negative); Nitrite Negative (Negative); Protein, Urine (Dipstick) Negative (Neg-Trace); Specific Gravity, Urine 1.003 (1.002-1.036); Urobilinogen Normal mg/dL (Less than 2); pH, Urine 6.5 (5.0-9.0)
[2021-12-02 18:23] LABS: #Lymphocytes 1.8 thou/uL (1.20-3.40); #Monocytes 0.3 thou/uL (0.11-0.59); #Neutrophils 2.6 thou/uL (1.40-6.50); %Basophils 0.4 % (0.0-1.0); %Eosinophils 0.6 % (0.0-10.0); %Lymphocytes 37.6 % (21.0-51.0); %Monocytes 5.5 % (0.0-10.0); %Neutrophils 55.9 % (42.0-75.0); Hemoglobin 12.5 g/dL (12.0-16.0); Mean Corpuscular HGB CONC 33.7 g/dL (32.0-36.0); Mean Corpuscular Hemoglobin 33.1 pg (27.0-31.0); Mean Corpuscular Volume 98.2 fL (78.0-98.0); Mean Platelet Volume 8.6 fL (7.4-10.4); Platelet Count 170 thou/uL (130-400); RBC Distribution Width 11.7 % (11.5-14.5); Red Blood Cell (RBC) Count 3.79 mill/uL (4.20-5.40); White Blood Cell (WBC) Count 4.7 thou/uL (4.8-10.8)
[2021-12-02 18:47] LABS: ALT (SGPT) 7 U/L (8-55); AST (SGOT) 15 U/L (5-34); Albumin 3.8 g/dL (3.5-5.0); Alkaline Phosphatase 62 U/L (40-110); Anion Gap 11 mmol/L (10-20); BUN (Urea Nitrogen) 8 mg/dL (9.8-20.1); Bilirubin, Total 0.5 mg/dL (0.2-1.2); CK (CPK) 50 U/L (29-168); Calc. Creatinine Clearance 0 mL/min (70-130); Calcium 8.5 mg/dL (7.8-10.44); Carbon Dioxide 23 mmol/L (22-29); Chloride 108 mmol/L (98-107); Glucose 86 mg/dL (70-105); Lipase 77 U/L (8-78); Potassium 3.4 mmol/L (3.5-5.1); Protein, Total 5.8 g/dL (6.0-8.3); Sodium 139 mmol/L (136-145)
== END 2021-12-02 22:27 | disposition home or self-care (01) ==
LOC: ERS 16:32
DX: K31.84 Gastroparesis (principal); F17.210 Nicotine dependence, cigarettes, uncomplicated
CPT/HCPCS: 36415; 70450; 80053; 81003; 82550; 83690; 83735; 84484; 85025; 93005; 96365; 96375; J1200; J2765